=== PATIENT | female | born 1960 ===

== ENCOUNTER 2020-02-10 08:28 | Outpatient (REF) | payer MEDICAID, SELFPAY ==
--- NOTE | 2020-02-10 08:34 | MM_ITS ---
EXAMINATION: MM SCREENING DIGITAL BREAST TOMOSYNTHESIS, BILATERAL CLINICAL INFORMATION: Screening. Asymptomatic. History of benign left breast stereotactic biopsy on 05/18/2016. The lifetime risk of breast cancer based on the Tyrer-Cuzick Model is 8.1%. COMPARISON: Mammography: Mammograms of 02/06/2019 and multiple previous mammograms dated back to 01/21/2015 TECHNIQUE: Digital breast tomosynthesis is performed in both the craniocaudal and mediolateral oblique views along with computer-aided detection (CAD). Synthesized 2D images are generated from the tomosynthesis. FINDINGS: There are scattered areas of fibroglandular density (ACR BI-RADS breast composition Category b). A T-shaped postbiopsy marker clip in the upper outer quadrant of the left breast, 3.5 cm from nipple is unchanged in position. No suspicious masses, calcifications, architectural distortion or other abnormalities are seen in either breast. MM/MM tomosynthesis screening BI IMPRESSION: No mammographic evidence of malignancy. ASSESSMENT: BI-RADS 2: Benign RECOMMENDATION: Routine annual mammography screening. This patient's information was entered into a reminder system with a target due date for their next mammogram.
== END 2020-02-10 08:29 | disposition home or self-care (01) ==
LOC: HO.MAMMO 08:28
PROVIDERS: Visit Provider Family Medicine
DX: Z12.31 Encounter for screening mammogram for malignant neoplasm of breast (principal)
CPT/HCPCS: 77063; 77067

== ENCOUNTER 2022-09-09 11:10 | Outpatient (REF) | payer MEDICAID, SELFPAY ==
--- NOTE | ~2022-09-09 | MM_ITS ---
EXAMINATION: MM SCREENING DIGITAL BREAST TOMOSYNTHESIS, BILATERAL CLINICAL INFORMATION: Screening. Asymptomatic. The lifetime risk of breast cancer based on the Tyrer-Cuzick Model is 7%. COMPARISON: Multiple prior exams including most recent 02/18/2020. TECHNIQUE: Digital breast tomosynthesis is performed in both the craniocaudal and mediolateral oblique views along with computer-aided detection (CAD). Synthesized 2D images are generated from the tomosynthesis. FINDINGS: There are scattered areas of fibroglandular density (ACR BI-RADS breast composition Category b). There are no significant masses, abnormal calcifications, or other abnormalities. Biopsy clip marker again seen anterior mid upper outer left breast. No developing density or architectural abnormality. The axilla and skin contours are unremarkable. MM/MM tomosynthesis screening BI IMPRESSION: No mammographic evidence of malignancy. ASSESSMENT: BI-RADS 1: Negative RECOMMENDATION: Routine annual mammography screening. This patient's information was entered into a reminder system with a target due date for their next mammogram.
== END 2022-09-09 11:11 | disposition home or self-care (01) ==
LOC: HO.MAMMO 11:10
PROVIDERS: PCP Internal Medicine; Visit Provider Internal Medicine
DX: Z12.31 Encounter for screening mammogram for malignant neoplasm of breast (principal)
CPT/HCPCS: 77063; 77067

== ENCOUNTER 2022-11-17 19:30 | Outpatient (REF) | payer MEDICAID, SELFPAY ==
[2022-11-22 05:09] LABS: HPV mRNA E6/E7 rflx Not Detected (Not Detected)
== END 2022-11-17 19:31 | disposition home or self-care (01) ==
LOC: HO.HHCLNP 19:30
PROVIDERS: Visit Provider Internal Medicine
DX: Z12.4 Encounter for screening for malignant neoplasm of cervix (principal); Z11.51 Encounter for screening for human papillomavirus (HPV)
CPT/HCPCS: 87624; 88142

== ENCOUNTER 2023-08-02 10:26 | Outpatient (REF) | payer MEDICAID, SELFPAY ==
[2023-08-02 11:32] LABS: MANUAL DIFF FLAG NO
[2023-08-02 11:42] LABS: Basophils Absolute Auto 0.1 X10*3/uL (0.0-0.2); Basophils Percent Auto 0.8 % (0-2); Eosinophils Absolute Auto 0.1 X10*3/uL (0.0-0.4); Eosinophils Percent Auto 1.2 % (0-4); Hematocrit 39.1 % (37.0-47.0); Hemoglobin 13.6 g/dl (12.0-16.0); Imm Gran Abs Auto 0.04 X10*3/uL (0.00-0.03); Imm Gran Pct Auto 0.5 % (0.0-0.4); Lymphocytes Absolute Auto 2.4 X10*3/uL (1.2-4.9); Lymphocytes Percent Auto 27.3 % (20-40); Mean Corpuscular HGB Conc 34.8 g/dl (31.0-35.0); Mean Corpuscular Hemoglobin 31.4 pg (27.0-33.0); Mean Corpuscular Volume 90.3 fL (80.0-98.0); Mean Platelet Volume 9.4 fL (9.4-12.3); Monocytes Absolute Auto 0.6 X10*3/uL (0.1-1.2); Monocytes Percent Auto 6.5 % (2-11); Neutrophils Absolute Auto 5.5 x10*3/uL (2.0-8.3); Neutrophils Percent Auto 63.7 % (45-73); Platelet Count 330 X10*3/uL (160-400); Red Blood Count 4.33 X10*6/uL (4.20-5.50); Red Cell Distribution Width 12.7 % (11.0-16.0); White Blood Count 8.6 X10*3/uL (4.8-10.8)
[2023-08-02 12:07] LABS: Estimated Average Glucose 97 mg/dL
[2023-08-02 12:16] LABS: Alanine Aminotransferase 16 U/L (0-31); Albumin Level 4.2 g/dL (3.5-5.0); Alkaline Phosphatase 84 U/L (39-117); Anion Gap 10 (12-20); Aspartate Amino Transferase 15 U/L (5-31); Bilirubin Direct 0.5 mg/dL (0.0-0.5); Bilirubin Total 1.9 mg/dL (0.0-1.0); Blood Urea Nitrogen 9 mg/dL (9-16); Calcium 9.3 mg/dL (8.4-10.2); Carbon Dioxide 28 mmol/L (22-29); Chloride 106 mmol/L (96-108); Cholesterol 213 mg/dL (<200); Estimated Glomerular Filt Rate > 60; Glucose Random 97 mg/dL (60-115); HDL Cholesterol 53 mg/dL (>40); LDL Cholesterol Calculated 123 mg/dL (<100); Potassium 3.6 mmol/L (3.3-5.1); Sodium 140 mmol/L (135-145); Total Protein 7.4 g/dL (6.5-8.0); Triglycerides 186 mg/dL (<150)
[2023-08-02 12:34] LABS: TSH reflex Free T4 1.35 uIU/mL (0.32-4.0); Vitamin D 25-OH Total 17.2 ng/mL (>30)
[2023-08-02 14:39] LABS: Folate 12.6 ng/mL (> or = 4.0); Vitamin B12 363 pg/mL (200-900)
[2023-08-03 05:31] LABS: HIV AB/AG Nonreactive (Nonreactive); HIV Num 1 0.04 S/CO (0.00-0.99); ~Hepatitis C Antibody Nonreactive (Nonreactive)
== END 2023-08-02 10:27 | disposition home or self-care (01) ==
LOC: HO.HHCL 10:26
PROVIDERS: Visit Provider Internal Medicine
DX: R42 Dizziness and giddiness (principal); R00.2 Palpitations; K58.2 Mixed irritable bowel syndrome
CPT/HCPCS: 36415; 80048; 80061; 80076; 82306; 82607; 82746; 83036; 84443; 85025; 86803; 87338; 87389

== ENCOUNTER 2023-09-15 10:46 | Outpatient (REF) | payer MEDICARE, SELFPAY ==
--- NOTE | ~2023-09-15 | MM_ITS ---
EXAMINATION: MM SCREENING DIGITAL BREAST TOMOSYNTHESIS, BILATERAL CLINICAL INFORMATION: Screening. Asymptomatic. COMPARISON: Mammography: This study is compared with prior exams dating back to 2019. TECHNIQUE: Digital breast tomosynthesis is performed in both the craniocaudal and mediolateral oblique views along with computer-aided detection (CAD). Synthesized 2D images are generated from the tomosynthesis. FINDINGS: There are scattered areas of fibroglandular density (ACR BI-RADS breast composition Category b). There are no significant masses, abnormal calcifications, or other abnormalities. There is a biopsy tissue marker in the upper outer quadrant of the left breast. MM/MM tomosynthesis screening BI IMPRESSION: No mammographic evidence of malignancy. ASSESSMENT: BI-RADS BI-RADS 2 - Benign Findings RECOMMENDATION: Routine annual mammography screening. 1 year F/U This examination should not preclude the clinical evaluation of a suspicious palpable abnormality. This patient's information was entered into a reminder system with a target due date for their next mammogram.
== END 2023-09-15 10:47 | disposition home or self-care (01) ==
LOC: HO.MAMMO 10:46
PROVIDERS: PCP Internal Medicine; Visit Provider Internal Medicine
DX: Z12.31 Encounter for screening mammogram for malignant neoplasm of breast (principal)
CPT/HCPCS: 77063; 77067

== ENCOUNTER → 2023-09-15 11:00 | Outpatient (BNV) | payer MEDICARE, SELFPAY | PROVIDERS: PCP Internal Medicine; Visit Provider Radiology Diagnostic Radiology | DX: Z12.31 Encounter for screening mammogram for malignant neoplasm of breast (principal) | CPT/HCPCS: 77063; 77067 ==

== ENCOUNTER 2023-11-14 12:34 | Outpatient (REF) | payer MEDICARE, MEDICAID, SELFPAY ==
[2023-11-14 14:21] LABS: Troponin-I High Sensitivity < 2.7 ng/L (<3.5-17.0)
== END 2023-11-14 12:35 | disposition home or self-care (01) ==
LOC: HO.LAB 12:34
PROVIDERS: PCP Internal Medicine; Visit Provider Internal Medicine Cardiovascular Disease
DX: R07.89 Other chest pain (principal); I44.4 Left anterior fascicular block; R00.2 Palpitations
CPT/HCPCS: 36415; 84484; 93005; 99202

== ENCOUNTER 2023-11-14 12:34 | Outpatient (AMB) | payer MEDICARE, SELFPAY ==
--- NOTE | 2023-11-14 12:41 | A.OFFVIS_ITS ---
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,chest pain Intake Note: New patient chest pain and palpitations c/o chest pain with activity Burner Tender Required: Yes Burner Tender Services: Burner Tender Present Burner Tender Name: Alondra arriaga Electrical And Instrument Engineer: Electrical And Instrument Engineer Present Accompanied by: Daughter Allergies No Known Allergies [No Known Allergies*] Allergy (Unverified 12/26/19 16:16) Medication List - Last Reconciled 11/14/23 by Eran Ni MD acetaminophen mg PO cholecalciferol (vitamin D3) (Vitamin D3) 50 mcg PO DAILY cyclobenzaprine 5 mg PO TID PRN duloxetine 30 mg PO BID famotidine 20 mg PO BID fluticasone propionate 50 mcg/actuation 1 spray intranasal QAM gabapentin 300 mg PO TID loratadine 10 mg PO QAM meclizine 25 mg PO TID PRN ondansetron 8 mg PO Q8H PRN HPI Comments Details: Loly was referred here for precordial chest pain, she is accompanied by her daughter. History was obtained with help of a certified rollway man over the telephone. Patient is 63-year-old female with no major cardiovascular risk factors with no history of hypertension, diabetes, hyperlipidemia, family history or smoking. Patient says over the many months she has been getting left shoulder discomfort radiating to precordial area. Symptoms can happen any time and including at rest. She says she has having chest pain while he was interviewing with her and has been present since she woke up this morning for many hours. Pain is continuously present. Pain is worse with movement of her left shoulder above the shoulder level. Pain is reproducible with movement as well as on pressure over the precordial area. She denies any exertional chest pain or shortness of breath says. She has limited exercise due to knee pain and gets tired after walking for many miles. Denies any heart failure symptoms. Denies any palpitations. No lightheadedness, syncope. [facility] Surgical History Hx of tubal ligation Family History Father No problems noted. Mother No problems noted. Social History Patient Tobacco Use Status: Never used Tobacco Review of Systems Const Denies chills, Denies daytime sleepiness, Denies fatigue, Denies fever(s), Denies frequent falls, Denies poor appetite, Denies snoring, Denies stops breathing during sleep, Denies weakness, Denies weight gain and Denies weight loss Eyes Denies loss of vision ENT Reports dizziness and Denies hearing loss Card Reports chest pain, Denies claudication, Denies leg edema, Denies lightheadedness, Reports palpitations, Denies dyspnea, Denies dyspnea on exertion and Denies orthopnea Resp Denies cough, Denies excessive phlegm production, Denies dyspnea, Denies dyspnea on exertion, Denies snoring and Denies wheezing GI Denies abdominal pain, Denies hematochezia, Denies change in bowel habits, Denies nausea and Denies vomiting Denies urinary frequency and Denies dysuria Musc Denies arthralgias, Denies muscle weakness, Denies numbness and Denies other (frequent falls) Skin/Breast Denies nail changes and Denies rash Neuro Denies Abnormal speech present, Reports dizziness, Denies frequent falls, Denies loss of vision, Denies memory loss, Denies numbness and Denies weakness Psych Denies depression and Denies memory loss Endo Denies fatigue and Reports palpitations Sidney/Lymph Reports easy bruising and Reports other (anemia) Aller/Immun Denies wheezing Physical Exam Vital Signs: Last Vital Signs Pulse 94 11/14/23 12:42 BP 138/80 11/14/23 12:42 BMI result Body Mass Index 30.2 Const General: cooperative, comfortable, no acute distress, alert, awake and Physically active Nutritional Appearance: obese Orientation/consciousness: patient oriented x3 Limitations: no limitations HEENT Head: Yes normocephalic and Yes atraumatic Neck Neck: Yes trachea midline, Yes supple and Yes no JVD Carotids: no bruits Chest Chest palpation & inspection: other (Reproduce will pain over the upper left chest area) Resp Effort & Inspection: normal respiratory effort Auscultation: clear to auscultation bilaterally Cardio Jugular venous distension: no JVD Palpation: normal PMI Rate: regular rate Rhythm: regular rhythm Heart sounds: S1 normal heart sound present, S2 normal heart sound present, no click, no gallops, no murmurs and Rub heart sound present GI Auscultation: normal bowel sounds Skin General skin exam: no rashes or lesions noted Neuro General: patient oriented x3 and no focal motor deficits Speech: No Abnormal speech present Extrem General: Yes no clubbing, cyanosis or edema Office Procedures EKG Details: EKG shows normal sinus rhythm with left anterior fascicular block with pulmonary disease pattern [id number], Complete Assessment & Plan Assessment & Plan (1) Non-cardiac chest pain: Code(s): R07.89 - Other chest pain Plan: Patient's chest pain is reproducible with movement as well as with pressure and has been present since morning 4 hours. EKG does not show any acute ischemic changes. Likelihood of myocardial ischemic pain is extremely less likely. Will check troponin today. Discussed with the patient that this appears to be musculoskeletal pain related to either muscular inflammation and/or shoulder issues. Will follow with you. I do not think she requires stress testing as she has no risk factors and minimal likelihood of myocardial ischemia by EKG as well as (2) Left anterior fascicular block: Code(s): I44.4 - Left anterior fascicular block Category: Medical Plan: Left anterior fascicular block noted on the EKG. Will obtain echocardiogram to rule out any structural heart disease. No further workup is indicated with the structure of the heart is within normal limits. Would continue with annual EKGs. Unlikely to cause any symptoms. Will follow up in the clinic if need be. Thank you for allowing me to partake in her care Orders: Orders CA echo transthoracic complete Today I44.4 - Left anterior fascicular block Troponin-I High Sensitivity Today R07.89 - Other chest pain Coding Level of Care Code New Pt Level 4 (59724) Diagnoses Non-cardiac chest pain R07.89 Left anterior fascicular block I44.4 CPT Codes EKG - CPT: 66646-[id number], Complete ([id number])
[2023-11-14 12:42] VITALS: BP 138/80; PULSE 94; BMI 30.2
== END 2023-11-14 14:59 | disposition home or self-care (01) ==
PROVIDERS: PCP Internal Medicine; Visit Provider Internal Medicine Cardiovascular Disease
DX: R07.89 Other chest pain (principal); I44.4 Left anterior fascicular block
CPT/HCPCS: 93010; 99204

== ENCOUNTER 2023-12-06 13:22 | Outpatient (AMB) | payer MEDICARE, SELFPAY ==
[2023-12-06 13:24] VITALS: BP 131/59; PULSE 79; BMI 31.1
--- NOTE | 2023-12-06 13:24 | A.OFFVIS_ITS ---
Vital Signs 12/06/23 13:24 Height 5 ft 2 in Weight 170 lb 3.15 oz BMI 31.1 BP 131/59 L Blood Pressure Location Rt brachial Position Sitting Pulse 79 Intake Visit Reasons: Irritable bowel syndrome Intake Note: Loly presents to in office visit as a new patient for IBS. CC: Patient c/o nausea, abdominal pain, heartburn, acid reflux, constipation, diarrhea, and dysphagia. Patient states that she had a colonoscopy and EGD done years ago here at [facility]. [employer] Representative [employer] Required: Yes Accompanied by: Daughter Allergies No Known Allergies [No Known Allergies*] Allergy (Verified 12/06/23 13:30) HPI HPI Irritable bowel syndrome: Details: 63-year-old female here for an evaluation of IBS-M. She is referred by [facility]. PMX Obesity-BMI 31 Allergic rhinitis Palpitations Left fascicular block Arthralgias myalgias Dizziness Fatigue Depression GERD IBS-M H pylori infection * SURGICAL HISTORY Tubal Ligation Colonoscopy 2015 Paiz-no polyps Esophagogastroduodenoscopy-H pylori discovered * ALLERGIES: NKDA * [employer] LABS: Laboratory Tests 08/02/23 10:28 WBC 8.6 Hgb 13.6 Hct 39.1 Plt Count 330 Estimated GFR > 60 Total Bilirubin 1.9 H Direct Bilirubin 0.5 AST 15 ALT 16 Alkaline Phosphatase 84 TSH 1.35 Hepatitis C Ab (EIA) Nonreactive HIV 1&2 Ab/P24 Ag 4thGn Nonreactive TODAY'S VISIT Macedonian # female family member translates per pt request. This seems to have started in 10/2023 with pain and reflux and dysphagia of solid foods. The food gets stuck at the level of the voicebox and at times this also happens at times with liquids and she has mild aspiration. She has epigastric discomfort that she can not further qualify. She can not ID any preceding medication changes, diet changes or illness, she has gained some weight. Her stooling is described as diarrheal now, and this started along with the epigastric pain. Prior to this her stools were normal and formed. She also describes periumbilical pain with every BM but at times she will go several days or even up to a week w/o any BM. She is not having any formed stools now. She has a lot of nausea but no vomiting - mostly when the pain is bad. Her 2 dtrs have had choles, one older sister has a shrimp allergy. For now I am going to get stool testing to excluding infection, pancreatic a last taste, an ultrasound to test for gallbladder disease and will start her on a trial of dicyclomine. We could consider if EGD/colonoscopy is needed but I am not so sure this would be the most specific diagnostic process for what she is experiencing. Her last colonoscopy was in 2015 and with a negative family history she would be due for re-screening in 2025. However, an upper endoscopy due to her reports of dysphagia could be reasonable but since it seems to be high up in the late lingual phase we may need to consider a modified barium swallow as well. ROV 6 weeks. [facility] Medical History (Updated 12/06/23 @ 14:05 by TARYN Winchester) Irritable bowel syndrome with both constipation and diarrhea Surgical History H/O esophagogastroduodenoscopy H/O colonoscopy Hx of tubal ligation Family History Father No problems noted. Mother No problems noted. Social History Alcohol intake: never Patient Tobacco Use Status: Never used Tobacco Review of Systems Const Denies fatigue, Denies fever(s), Denies night sweats, Denies poor appetite and Denies weight loss ENT Reports Normal hearing present, Denies dental pain, Reports dysphagia, Denies hearing loss, Denies mouth pain, Denies odynophagia, Denies throat swelling, Denies tongue swelling and Reports other (Dentition adequate) Card Reports no additional complaints Resp Reports no additional complaints GI Details: Reports abdominal pain, Denies melena, Reports bloating, Denies hematochezia, Denies constipation, Reports GI cramping, Reports dysphagia, Denies excessive flatus, Denies early satiety, Reports heartburn, Denies diarrhea, Reports loose stools, Denies nausea, Denies odynophagia, Denies vomiting and Denies hematemesis Skin/Breast Denies pruritus, Denies lesions, Denies rash and Denies jaundice Neuro Reports Normal hearing present and Denies Abnormal speech present Endo Denies fatigue Aller/Immun Denies throat swelling and Denies tongue swelling Physical Exam Vital Signs: Last Vital Signs Pulse 79 12/06/23 13:24 BP 131/59 L 12/06/23 13:24 BMI result Body Mass Index 31.1 Const General: cooperative, no acute distress, well developed and well groomed Nutritional Appearance: well nourished and obese Orientation/consciousness: oriented to person, oriented to place and oriented to time Limitations: language barrier and ambulation with cane HEENT Head: Yes normocephalic and Yes atraumatic Eyes General: appearance normal, both eyes and all related structures Pupils: Equal, round and reactive pupils present Neck Neck: Yes normal visual inspection and Yes no lymphadenopathy Thyroid: Thyroid normal Resp Effort & Inspection: normal respiratory effort and able to speak in complete sentences Auscultation: clear to auscultation bilaterally Cardio Rate: regular rate Rhythm: regular rhythm Heart sounds: Normal, physiologic split S2 sound present Peripheral pulses: radial pulses present and posterior tibial pulses present GI Inspection: No distended, Yes Abdominal panniculus present and Yes obesity Palpation (GI): Soft to palpation, nontender, no guarding, not rigid and No hepatosplenomegaly present Percussion: Yes normal to percussion Auscultation: normal bowel sounds Rectal Exam - Female: deferred Skin General skin exam: no rashes or lesions noted, turgor normal, skin not dry, no jaundice, No spider nevi and no striae Rashes: no rashes Nails: normal Neuro General: oriented to person, oriented to place and oriented to time Cranial nerves: Yes Equal, round and reactive pupils present and Yes Normal hearing present Speech: No Abnormal speech present Extrem General: Yes normal to inspection, No clubbing, No cyanosis and No edema Psych Appearance: grossly normal and well kempt Mental Status: mental status grossly normal Speech and movement: Normal speech and movement present Affect: normal affect Attitude: cooperative Thought process: Normal thought process present and not confabulating Thought content: Normal thought content present Insight: Limited insight present (Psych) Judgement: Limited judgement present (Psych) Assessment & Plan Assessment & Plan (1) GERD (gastroesophageal reflux disease): Code(s): K21.9 - Gastro-esophageal reflux disease without esophagitis Category: Medical (2) Diarrhea: Code(s): R19.7 - Diarrhea, unspecified Category: Medical (3) Upper abdominal pain: Code(s): R10.10 - Upper abdominal pain, unspecified Category: Medical Plan Macedonian # female family member translates per pt request. This seems to have started in 10/2023 with pain and reflux and dysphagia of solid foods. The food gets stuck at the level of the voicebox and at times this also happens at times with liquids and she has mild aspiration. She has epigastric discomfort that she can not further qualify. She can not ID any preceding medication changes, diet changes or illness, she has gained some weight. Her stooling is described as diarrheal now, and this started along with the epigastric pain. Prior to this her stools were normal and formed. She also describes periumbilical pain with every BM but at times she will go several days or even up to a week w/o any BM. She is not having any formed stools now. She has a lot of nausea but no vomiting - mostly when the pain is bad. Her 2 dtrs have had choles, one older sister has a shrimp allergy. For now I am going to get stool testing to excluding infection, pancreatic a last taste, an ultrasound to test for gallbladder disease and will start her on a trial of dicyclomine. We could consider if EGD/colonoscopy is needed but I am not so sure this would be the most specific diagnostic process for what she is experiencing. Her last colonoscopy was in 2015 and with a negative family history she would be due for re-screening in 2025. However, an upper endoscopy due to her reports of dysphagia could be reasonable but since it seems to be high up in the late lingual phase we may need to consider a modified barium swallow as well. ROV 6 weeks. Orders: Orders GI Panel Today K21.9 - Gastro-esophageal reflux disease without esophagitis, R10.10 - Upper abdominal pain, unspecified, R19.7 - Diarrhea, unspecified Transglutaminase IgA Today K21.9 - Gastro-esophageal reflux disease without esophagitis, R10.10 - Upper abdominal pain, unspecified, R19.7 - Diarrhea, unspecified US abdomen complete Today K21.9 - Gastro-esophageal reflux disease without esophagitis, R10.10 - Upper abdominal pain, unspecified, R19.7 - Diarrhea, unspecified CDiff Gene PCR Today K21.9 - Gastro-esophageal reflux disease without esophagitis, R10.10 - Upper abdominal pain, unspecified, R19.7 - Diarrhea, unspecified Rast Allergen Today K21.9 - Gastro-esophageal reflux disease without esophagitis, R10.10 - Upper abdominal pain, unspecified, R19.7 - Diarrhea, unspecified Transglutaminase Ab IgG Today K21.9 - Gastro-esophageal reflux disease without esophagitis, R10.10 - Upper abdominal pain, unspecified, R19.7 - Diarrhea, unspecified Pancreatic Elastase-1 Today K21.9 - Gastro-esophageal reflux disease without esophagitis, R10.10 - Upper abdominal pain, unspecified, R19.7 - Diarrhea, unspecified Medications: New dicyclomine 20 mg PO QID 120 tabs 3RF 30 days R10.10 - Upper abdominal pain, unspecified, R19.7 - Diarrhea, unspecified Coding Level of Care Code New Pt Level 3 (21900) Diagnoses GERD (gastroesophageal reflux disease) K21.9 Diarrhea R19.7 Upper abdominal pain R10.10
== END 2023-12-06 14:12 | disposition home or self-care (01) ==
PROVIDERS: PCP Internal Medicine; Visit Provider Nurse Practitioner
DX: K21.9 Gastro-esophageal reflux disease without esophagitis (principal); R19.7 Diarrhea, unspecified; R10.10 Upper abdominal pain, unspecified
CPT/HCPCS: 99203

== ENCOUNTER → 2023-12-06 13:22 | Outpatient (BNVA) | payer MEDICARE, SELFPAY | PROVIDERS: PCP Internal Medicine; Visit Provider Nurse Practitioner | DX: Z13.89 Encounter for screening for other disorder (principal) | CPT/HCPCS: 99202 ==

== ENCOUNTER 2023-12-06 14:22 | Outpatient (REF) | payer MEDICARE, SELFPAY ==
[2023-12-08 21:07] LABS: Transglutaminase Ab IgG <1.0 U/mL; Transglutaminase IgA <1.0 U/mL
== END 2023-12-06 14:23 | disposition home or self-care (01) ==
LOC: HO.LAB 14:22
PROVIDERS: PCP Internal Medicine; Visit Provider Nurse Practitioner
DX: R19.7 Diarrhea, unspecified (principal); R10.10 Upper abdominal pain, unspecified; K21.9 Gastro-esophageal reflux disease without esophagitis
CPT/HCPCS: 36415; 86003; 86364; 99202

== ENCOUNTER 2023-12-07 11:38 | Outpatient (REF) | payer MEDICARE, SELFPAY | END 2023-12-07 11:39 | disposition home or self-care (01) | LOC: HO.LNP 11:38 | PROVIDERS: Visit Provider Nurse Practitioner | DX: Z13.89 Encounter for screening for other disorder (principal) | CPT/HCPCS: 82656; 87493 ==

== ENCOUNTER 2023-12-12 11:42 | Outpatient (REF) | payer SELFPAY ==
[2023-12-13 10:06] LABS: Adenovirus F 40/41 Not Detected (Not Detect.); Astrovirus Not Detected (Not Detect.); Campylobacter Not Detected (Not Detect.); Cryptosporidium Not Detected (Not Detect.); Cyclospora cayetanensis Not Detected (Not Detect.); E. coli EAEC Detected (Not Detect.); E. coli EPEC Not Detected (Not Detect.); E. coli ETEC Not Detected (Not Detect.); E. coli STEC Not Detected (Not Detect.); Entamoeba histolytica Not Detected (Not Detect.); Giardia lamblia Not Detected (Not Detect.); Norovirus GI/GII Not Detected (Not Detect.); Plesiomonas shigelloides Not Detected (Not Detect.); Rotavirus A Not Detected (Not Detect.); Salmonella Not Detected (Not Detect.); Sapovirus Not Detected (Not Detect.); Shigella sp./EIEC Not Detected (Not Detect.); Vibrio Not Detected (Not Detect.); Vibrio Cholerae Not Detected (Not Detect.); Yersinia enterocolitica Not Detected (Not Detect.)
== END 2023-12-12 11:43 | disposition home or self-care (01) ==
LOC: HO.LNP 11:42
PROVIDERS: Visit Provider Nurse Practitioner
DX: R19.7 Diarrhea, unspecified (principal); R10.10 Upper abdominal pain, unspecified; K21.9 Gastro-esophageal reflux disease without esophagitis
CPT/HCPCS: 87507

== ENCOUNTER 2023-12-14 08:12 | Outpatient (REF) | payer SELFPAY ==
--- NOTE | ~2023-12-14 | US_ITS ---
EXAMINATION: US ABDOMEN COMPLETE CLINICAL INFORMATION: Diarrhea, unspecified. Upper abdominal pain. COMPARISON: None available. TECHNIQUE: Real-time imaging of the abdominal viscera. Technically difficult study secondary to bowel gas and body habitus. FINDINGS: PANCREAS: The pancreas appears unremarkable, without masses or ductal dilatation, with the exception of the tail which is obscured by bowel gas. ABDOMINAL AORTA: The proximal and mid abdominal aorta show no evidence of an aneurysm. The distal aorta is not visualized. INFERIOR VENA CAVA: Visualized portions are normal. LIVER: Liver is enlarged at 18 cm. The liver contour is normal. There is diffuse increased liver parenchymal echogenicity, consistent with hepatic steatosis. No focal hepatic lesion. There is no intrahepatic biliary duct dilatation seen. GALLBLADDER: Normal. The gallbladder is physiologically distended without evidence of stones, sludge, polyps, wall thickening or pericholecystic fluid. COMMON BILE DUCT: Normal in caliber measuring 0.4 cm in diameter. RIGHT KIDNEY: Normal. No hydronephrosis. No renal calculi or focal parenchymal lesions. The kidney measures 10.0 cm in maximum dimension. LEFT KIDNEY: Normal. No hydronephrosis. No renal calculi or focal parenchymal lesions. The kidney measures 10.8 cm in maximum dimension. SPLEEN: The spleen measures 6.8 cm in maximum dimension. FREE FLUID: None. US/US abdomen complete IMPRESSION: Enlarged fatty liver. Electronically signed by: Jenaro Henry MD 12/20/2023 03:20 PM EDT
== END 2023-12-14 08:13 | disposition home or self-care (01) ==
LOC: HO.US 08:12
PROVIDERS: PCP Internal Medicine; Visit Provider Nurse Practitioner
DX: R19.7 Diarrhea, unspecified (principal); R10.10 Upper abdominal pain, unspecified; K21.9 Gastro-esophageal reflux disease without esophagitis
CPT/HCPCS: 76700

== ENCOUNTER → 2023-12-20 10:36 | Outpatient (REF) | payer MEDICARE, SELFPAY ==
--- NOTE | 2023-12-20 10:40 | CA_ITS ---
Transthoracic Echocardiogram Patient (Last, First, Middle): Loly Magaña V Gender: Female Date of : 1960 Age: 63 Procedure Date: 12/20/2023 Procedure Type: Transthoracic Echocardiogram Location: OP Height: 152.4 cm Weight: 72.58 kg BSA: 1.70 m2 Heart Rate: bpm BP: 120 / 68 mmHg [facility] Director: TO Referring MD: Eran Ni MD C[employer] Chief Inspector: Eran Ni MD Symptoms: I44.4 - Left anterior fascicular block Study Quality: Fair/Contrast ECG Rhythm: Sinus Conclusions: - 1. Normal LV ejection fraction 60 65% with impaired relaxation filling pattern 2. Cardiac valvular Doppler was within normal limits 3. No gross pericardial effusion Findings Procedure Information Contrast agent, definity, is being given per protocol without apparent complications. Left Ventricle Normal left ventricular size, thickness, and systolic function. The visually estimated ejection fraction is between 60-65%. Spectral Doppler is indicative of an impaired relaxation filling pattern. E/E prime ratio is between 8 and 15 consistent with indeterminate filling pressures. Right Ventricle Normal right ventricular cavity size and systolic function. Atria Both atria are normal in size. Interatrial shunt cannot be excluded. Aortic Valve The aortic valve structure and function is likely normal. There is no aortic valve stenosis. There is no aortic valve regurgitation. Mitral Valve Normal mitral valve structure and function. There is trace mitral valve regurgitation. There is no mitral valve stenosis. Pulmonic Valve The pulmonic valve was not well visualized. Tricuspid Valve Likely normal tricuspid valve structure and function. There is trace tricuspid valve regurgitation. The right ventricular systolic pressure is normal. The right ventricular systolic pressure is 18 mmHg. Normal right atrial pressure. There is no evidence of pulmonary hypertension. Great Vessels All visible segments of the aorta are normal in size. The pulmonary artery was not well visualized. There is no dilatation of the ascending aorta measuring 2.70 cm. Venous The inferior vena cava is normal in size and collapses greater than 50% with inspiration. Pericardium/Pleural There is no evidence of pericardial effusion. Prior Study Comparison No prior study available for comparison. Measurements 2D Linear Measurements IVSd: 0.85 0.6-0.9/0.6-1.0 cm LVIDd: 3.86 3.9-5.3/4.2-5.9 cm LVIDd Index: 2.27 2.4-3.2/2.2-3.1 cm/m2 LVIDs: 2.56 2.0-3.6 cm LVPWd: 0.80 0.7-1.1 cm LA Diam: 2.70 2.7-3.8/3.0-4.0 cm LAIDs Index: 1.59 1.5-2.3 cm/m2 LV Mass: 113.50 67-162/88-224 g LV Mass Index: 66.76 43-95/49-115 g/m2 LVOT Diam: 2.00 3.0+(-)1.3 cm 2D Systolic Function EF 4C: 63.30 >55% EF 2C: 65.20 >55% EF BiP: 65.20 >55% Mitral Valve MV Pk E: 0.75 MV PK A: 0.93 MV Decel Time: 208.00 E/A: 0.80 E'Lateral: 6.53 E'Medial: 5.11 E/E' Med: 14.80 E/E' Lat: 11.50 PHT: 61.00 MVA PHT: 3.61 Decel [place]: 3.63 Aortic Valve AoV Pk Arie: 1.22 AoV Mn Arie: 0.74 AoV VTI: 0.25 AoV Pk Grad: 6.00 Aov Mn Grad: 3.00 EMETERIO Cont.VTI: 2.28 LVOT LVOT Pk Arie: 0.80 LVOT Mn Arie: 0.53 LVOT VTI: 0.18 LVOT Pk Grad: 3.00 LVOT Mn Grad: 1.00 LVOT Diam: 2.00 LVOT Area: 3.14 Diastolic Function MV Pk E: 0.75 MV Pk A: 0.93 E/A: 0.80 E'Medial: 5.11 E/E' Med: 14.80 E' Laterial: 6.53 E/E' Lat: 11.50 Right Ventricle TAPSE (mm): 26.50 TVS' Arie: 11.40 Tricuspid Valve TR Pk Arie: 1.91 TR Pk Grad: 15.00 RA Press: 3.00 RVSP: 18.00 Great Vessels Aorta Sinus of Valsalva: 3.12 2.0-3.5 cm Ao Asc: 2.70 2.1-3.4 cm Ao Arch: 2.40 Updated in Other Vendor System with Status of Final Eran Ni MD electronically signed on 12/20/2023 1:48:18 PM with status of Final
== END ==
LOC: HO.CARD 10:36
PROVIDERS: PCP Internal Medicine; Visit Provider Internal Medicine Cardiovascular Disease
DX: I44.4 Left anterior fascicular block (principal)
CPT/HCPCS: 93306; Q9957

== ENCOUNTER → 2023-12-20 10:40 | Outpatient (BNV) | payer MEDICARE, SELFPAY | PROVIDERS: PCP Internal Medicine; Visit Provider Internal Medicine Cardiovascular Disease | DX: I51.89 Other ill-defined heart diseases (principal); I44.4 Left anterior fascicular block | CPT/HCPCS: 93306 ==

== ENCOUNTER 2024-03-19 14:18 | Outpatient (REF) | payer MEDICARE, OTHER, SELFPAY | END 2024-03-19 14:19 | disposition home or self-care (01) | LOC: HO.HOSX 14:18 | PROVIDERS: Visit Provider Physician Assistant | DX: Z13.89 Encounter for screening for other disorder (principal) ==

== ENCOUNTER 2025-02-21 09:52 | Outpatient (REF) | payer OTHER, SELFPAY ==
--- OUTSIDE RECORDS SUMMARY | 2025-02-20 09:00 | XMS_ITS | Encounter Summary ---
Author Organization [employer] Address [address] [facility] 7t [place] [address] Care Team Providers Care Room Designer Name Role Phone Loly Sheridan MD Primary Care Provide r Reason for Referral * Medications - Closed Specialty Diagnoses / Procedures Referred By Contac t Referred To Contact Diagnoses Nausea Loly Sheridan MD [address] [place] [id number] Phone: tel: fax: Referral ID Status Reason Start Date Expiration Date Visits Re quested Visits Authorized [id number] Closed 1 1 Encounter Details Date Type Department Care Team ([facility] st Contact Info) Description 02/20/2025 9:00 AM EST Office Visit [facility] MEDICINE [address] [place] [phone] Loly Sheridan MD [address] [place] [address] [phone] Irritable bowel syndrome with both constipation and diarrhea (Primary Dx); Memory deficits; Fibromyalgia; Mixed hyperlipidemia; Gastroesophageal reflux disease, unspecified whether esophagitis present; Nausea Social History Tobacco Use Types Packs/Day Years Used Date Smoking Tobacco: Never Passive Smoke Exposure: Never Smokeless Tobacco: Never Alcohol Use Standard Drinks/Week Comments Never 0 (1 standard drink = 0.6 oz pur e alcohol) Depression Answer Date Recorded Patient Health Questionnaire-9 Score 0 08/09/2024 Patient Health Questionnaire-9 Score 0 08/09/2024 Last PHQ-9: Questionnaire Data Not on file 0 08/09/2024 Housing Stability Answer Date Recorded What is your housing situation today? I have arlin patterson 10/24/[address] you li ve. Do you have problems with any of the following? None of the above 10/24/2023 Food Insecurity Answer Date Recorded Within the past 12 months, y ou worried that your food would run out before you got money to buy more: Never True 02/06/2023 Within the past 12 months,th e food you bought just didn't last and you didn't have enough money to get more: Never True Transportation Answer Date Recorded In the past 12 months, has l ack of transportation kept you from medical appts, meetings, work or from getting things needed for daily living? No 10/24/2023 Utilities Answer Date Recorded In the past 12 months, has t he electric, gas, oil or water company threatened to shut off services in your home? No 02/06/2023 Depression Answer Date Recorded Patient Health Questionnaire-2 Score 0 08/09/2024 Internet Access Answer Date Recorded Internet Access Q1 Yes 10/27/2024 Internet Access Q2 Not on file 10/27/2024 Comments Unknown Sex and Gender Information Value Date Recorded Sex Assigned at Female 02/07/2022 10:16 AM EDT Legal Sex Female 10:16 AM EDT Gender Identity Female 02/07/2022 10:16 AM EDT Sexual Orientation Straight 02/07/2022 10 :16 AM EDT documented as of this encounter Last Filed Vital Signs Vital Sign Reading Time Taken Comments Blood Pressure 122/78 02/20/2025 9:02 AM EST Pulse 72 02/20/2025 9:02 AM EST Temperature 34.4 C (94 F) 02/20/2025 9:02 AM EST Respiratory Rate 19 02/20/2025 9:02 AM EST Oxygen Saturation 97% 02/20/2025 9:02 AM EST Inhaled Oxygen Concentration - - Weight 77.2 kg (170 lb 3.2 oz) 02/20/2025 9:02 A M EST Height 150.9 cm (4' 11.4 ) 02/20/2025 9:02 AM ES T Body Mass Index 33.91 02/20/2025 9:02 AM EST documented in this encounter Progress Notes * Loly Guzman MD - 02/20/2025 9:00 AM EST SUBJECTIVE: Loly Anderson is a 64 y.o. year old female who presents for Chronic Disease Management . Loly Anderson, age 64 years Memory Loss and Cognitive Changes - Progressive memory loss noted for approximately 3 months - Forgetting to take medications - Forgot daily-used bank account PIN - Getting lost after leaving the house, unable to find way back - Leaving stove on at high temperature - Expressed feeling cloudy and not knowing where she was - Increased forgetfulness and confusion observed by family, especially after increased time spent at home caring for spouse - Frustration and irritability when forgetting things - Difficulty with grocery shopping, requires assistance and gets overwhelmed or forgets items Depression - History of depression - Hesitant to accept or continue treatment for depression - Denies current anxiety Gastrointestinal Symptoms - History of irritable bowel syndrome - Frequent complaints of nausea and stomach pain - Reports lack of appetite, but craves sweets - States feeling hungry but does not want to eat regular food Palpitations - Occasional complaints of palpitations Fibromyalgia - History of fibromyalgia - Reports episodes of generalized pain, sometimes unable to get up due to pain Ophthalmologic History - 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 HENT: Negative. Respiratory: Negative. Cardiovascular: Negative. Musculoskeletal: Positive for arthralgias and myalgias. Psychiatric/Behavioral: Positive for agitation, confusion and decreased concentration. The patient is nervous/anxious. OBJECTIVE: Vitals: 02/20/25 0902 BP: 122/78 BP Location: Left arm Patient Position: Sitting BP Cuff Size: Adult Pulse: 72 Resp: 19 Temp: 94 ??F (34.4 ??C) TempSrc: Temporal SpO2: 97% Weight: 170 lb 3.2 oz (77.2 kg) Height: 4' 11.4 (1.509 m) Physical Exam Constitutional: Appearance: Normal appearance. Cardiovascular: Rate and Rhythm: Normal rate and regular rhythm. Pulmonary: Effort: Pulmonary effort is normal. Breath sounds: Normal breath sounds. Abdominal: General: Abdomen is flat. Palpations: Abdomen is soft. Musculoskeletal: Right lower leg: No edema. Left lower leg: No edema. Neurological: General: No focal deficit present. Mental Status: She is alert. Mental status is at baseline. Follow Up: Follow up for please scheduel patient with nurse for minimental test in 1-2 weeks . Medications Ordered Prior to Encounter[3] Problem List Items Addressed This Visit Memory deficits Relevant Orders CBC auto differential Comprehensive Metabolic Panel Hemoglobin A1c TSH with Reflex to Free T4 RPR (Monitor) with Reflex to Titer Vitamin B12 (Cobalamin) and Folate Panel, Serum Fibromyalgia Mixed hyperlipidemia Relevant Medications pravastatin (Pravachol) 20 MG tablet Irritable bowel syndrome with both constipation and diarrhea - Primary Relevant Medications dicyclomine (Bentyl) 20 MG tablet ondansetron (Zofran) 4 MG tablet Gastroesophageal reflux disease Relevant Medications famotidine (Pepcid) 20 MG tablet dicyclomine (Bentyl) 20 MG tablet ondansetron (Zofran) 4 MG tablet Nausea Relevant Medications famotidine (Pepcid) 20 MG tablet dicyclomine (Bentyl) 20 MG tablet ondansetron (Zofran) 4 MG tablet Memory deficits: - Memory deficits possibly dementia, depression, or other reversible causes. Differential includes vascular dementia due to branch retinal vein occlusion and depression as a contributing factor. Other etiologies to be ruled out with laboratory evaluation. - Ordered laboratory tests including thyroid function, vitamin B12, syphilis serology, and glucose.Scheduled mini mental status examination with nurse within 1-2 weeks. Will review results and referto neurology based on findings. Will request services such as [facility] or adult foster care depending onseverity. Will follow up with patient and family regarding results and next steps. Televisit scheduled for March 2025 to review labs. Fibromyalgia: - Fibromyalgia confirmed as cause of chronic pain. Mixed hyperlipidemia: - Mixed hyperlipidemia with previously elevated cholesterol and triglycerides. - Prescribed pravastatin 20 mg. Advised to take medication as directed. Irritable bowel syndrome with both constipation and diarrhea: - Irritable bowel syndrome with alternating constipation and diarrhea. - Prescribed dicyclomine as needed for abdominal pain and cramping. Advised to use as needed. Gastroesophageal reflux disease, unspecified whether esophagitis present: - Gastroesophageal reflux disease. - Prescribed Pepcid for acid reflux symptoms. Nausea: - Persistent nausea. - Prescribed ondansetron (Zofran) as needed for nausea. This note was drafted using Ambient (AI) technology. The patient/patient's guardian has been informed and has consented to the use of this technology: Yes [1] Patient Active Problem List Diagnosis Viral URI Gastroesophageal reflux disease Mood disorder (CMS/HCC) Recurrent major depressive episodes, mild (CMS/HCC) Other fatigue Encounter for preventive health examination Colon cancer screening Breast cancer screening by mammogram Encounter for Papanicolaou smear for cervical cancer screening Generalized body aches Epigastric pain Allergies Fibromyalgia Palpitations Other chest pain Dizziness Irritable bowel syndrome with both constipation and diarrhea Acute pain of left shoulder Elevated blood pressure reading Nausea Chronic left shoulder pain Missing teeth, acquired Dental calculus Dental caries Periodontal disease Diminished vision Memory deficits Mixed hyperlipidemia [2] Family History Problem Relation Name Age of Onset Cancer Father Diabetes Sister Hypertension Sister [3] Current Outpatient Medications on File Prior to Visit Medication Sig Dispense Refill cholecalciferol (D3 Super Strength) 50 MCG (2000 UT) capsule Take 1 capsule (50 mcg) by mouth Once per day. 90 capsule 1 fluticasone (Flonase) 50 MCG/ACT nasal spray Administer 1 spray into each nostril Once per day. Shake gently. Before first use, prime pump. After use, clean tip and replace cap. 48 g 1 loratadine (Claritin) 10 MG tablet Take 1 tablet (10 mg) by mouth Once per day. 30 tablet 0 naproxen (Naprosyn) 500 MG tablet TAKE 1 TABLET BY MOUTH TWICE DAILY WITH BREAKFAST AND WITH [id number] tablet 1 ondansetron ODT (Zofran-ODT) 4 MG disintegrating tablet Take 2 tablets (8 mg) by mouth every 8 (eight) hours if needed for nausea or vomiting. 30 tablet 0 [DISCONTINUED] dicyclomine (Bentyl) 20 MG tablet Take 1 tablet (20 mg) by mouth before breakfast, before lunch, before evening meal, and at bedtime. 30 tablet 1 [DISCONTINUED] famotidine (Pepcid) 20 MG tablet Take 1 tablet (20 mg) by mouth 2 times daily. 180 tablet 1 [DISCONTINUED] ondansetron (Zofran) 4 MG tablet TAKE 2 TABLETS BY MOUTH EVERY 8 HOURS NEEDED FORNAUSEA AND VOMITING FOR UP TO 7 DAYS 20 tablet 0 No current facility-administered medications on file prior to visit. documented in this encounter Plan of Treatment Upcoming Encounters Date Type Department Care Team (Late st Contact Info) Description 02/27/2025 11:00 AM EST Clinical Support [facility] MEDICINE [address] [place] [address] 03/12/2025 11:30 AM EST Office Visit [facility] OPTOMETRY [address] [place] [address] Dimitry Ketty, OD [address] [place] [address] 04/08/2025 10:00 AM EST Telemedicine [facility] MEDICINE [address] [place] [address] Loly Sheridan MD [address] [place] [address] Scheduled Orders Name Type Priority Associated Diagnoses Orde r Schedule CBC auto differential Lab Routine Memory deficits Expected: 02/20/2025 (Approximate), Expires: 02/20/2026 Comprehensive Metabolic Panel Lab Routine Memory deficits Expected: 02/20/2025 (Approximate), Expires: 02/20/2026 Hemoglobin A1c Lab Routine Memory deficits Expected: 02/20/2025 (Approximate), Expires: 02/20/2026 TSH with Reflex to Free T4 Lab Routine Memory deficits Expected: 02/20/2025 (Approximate), Expires: 02/20/2026 RPR (Monitor) with Reflex to Titer Lab Routine Memory deficits Expected: 02/20/2025, Expires: 02/20/2026 Vitamin B12 (Cobalamin) and Folate Panel, Serum Lab Routine Memory deficits Expected: 02/20/2025, Expires: 02/20/2026 documented as of this encounter Visit Diagnoses Diagnosis Irritable bowel syndrome with both constipation and diarrhea- Primary Memory deficits Memory loss Fibromyalgia Unspecified myalgia and myositis Mixed hyperlipidemia Gastroesophageal reflux disease, unspecified whether esophagitis present Nausea Nausea alone documented in this encounter Additional Health Concerns Assessment Noted Time PHQ-9 Depression Total Score: 0 08/10/19 25 9:14 AM EDT documented as of this encounter Care Teams Room Designer Relationship Specialty Start Date End Date Loly Sheridan MD [address] [place] [address] PCP - General Family Medicine 12/20/17 documented as of this encounter
[2025-02-21 10:16] LABS: MANUAL DIFF FLAG NO
[2025-02-21 11:02] LABS: Hematocrit 39.9 % (37.0-47.0); Hemoglobin 13.2 g/dl (12.0-16.0); Imm Gran Abs Auto 0.03 X10*3/uL (0.00-0.03); Imm Gran Pct Auto 0.4 % (0.0-0.4); Lymphocytes Absolute Auto 2.3 X10*3/uL (1.2-4.9); Mean Corpuscular HGB Conc 33.1 g/dl (31.0-35.0); Mean Corpuscular Hemoglobin 30.3 pg (27.0-33.0); Mean Corpuscular Volume 91.5 fL (80.0-98.0); NRBC Abs Auto 0.000 X10*3/uL (0.0-0.012); NRBC Pct Auto 0.0 /100WBC (0.0-0.2); Platelet Count 331 X10*3/uL (160-400); Red Blood Count 4.36 X10*6/uL (4.20-5.50); White Blood Count 7.5 X10*3/uL (4.8-10.8)
--- OUTSIDE RECORDS SUMMARY | 2025-02-21 11:08 | XMS_ITS | Encounter Summary ---
Author Organization [employer] Address [address] [place] [address] Care Team Providers Care Energy Derivatives Trader Name Role Phone Loly Sheridan MD Primary Care Provide r Encounter Details Date Type Department Care Team (Late st Contact Info) Description 01/17/2023 Abstract [facility] MEDICINE [address] [place] [address] Anjana Marks Social History Tobacco Use Types Packs/Day Years Used Date Smoking Tobacco: Never Passive Smoke Exposure: Never Smokeless Tobacco: Never Alcohol Use Standard Drinks/Week Comments Never 0 (1 standard drink = 0.6 oz pur e alcohol) Depression Answer Date Recorded Patient Health Questionnaire-9 Score 0 08/01/2022 Housing Stability Answer Date Recorded What is your housing situation today? I have arlin patterson 01/17/[address] you li ve. Do you have problems with any of the following? None of the above 01/17/2023 Food Insecurity Answer Date Recorded Within the past 12 months, y ou worried that your food would run out before you got money to buy more: Never True 01/17/2023 Within the past 12 months,th e food you bought just didn't last and you didn't have enough money to get more: Never True 01/2023 Transportation Answer Date Recorded In the past 12 months, has l ack of transportation kept you from medical appts, meetings, work or from getting things needed for daily living? No 01/17/2023 Utilities Answer Date Recorded In the past 12 months, has t he electric, gas, oil or water company threatened to shut off services in your home? No 01/17/2023 Depression Answer Date Recorded Patient Health Questionnaire-2 Score 0 08/01/2022 Comments Unknown Sex and Gender Information Value Date Recorded Sex Assigned at Female 02/07/2022 10:16 AM EDT Legal Sex Female 10:16 AM EDT Gender Identity Female 02/07/2022 10:16 AM EDT Sexual Orientation Straight 02/07/2022 10 :16 AM EDT documented as of this encounter Plan of Treatment Upcoming Encounters Date Type Department Care Team (Late st Contact Info) Description 02/27/2025 11:00 AM EST Clinical Support [facility] MEDICINE [address] [place] [address] 03/12/2025 11:30 AM EST Office Visit [facility] OPTOMETRY [address] [place] [address] Dimitry, Ketty, OD [address] [place] [address] 04/08/2025 10:00 AM EST Telemedicine [facility] MEDICINE [address] [place] [address] Loly Sheridan MD [address] [place] [address] documented as of this encounter Visit Diagnoses Not on filedocumented in this encounter Additional Health Concerns Assessment Noted Time PHQ-9 Depression Total Score: 0 08/02/19 23 2:59 PM EDT documented as of this encounter Care Teams Energy Derivatives Trader Relationship Specialty Start Date End Date Loly Sheridan MD [address] [place] [phone] PCP - General Family Medicine 12/20/17 documented as of this encounter
--- OUTSIDE RECORDS SUMMARY | 2025-02-21 11:08 | XMS_ITS | Encounter Summary ---
Author Organization [employer] Address [address] [facility] 7t [place] [address] Care Team Providers Care Director [employer] Name Role Phone Loly Sheridan MD Primary Care Provide r Encounter Details Date Type Department Care Team (Latest Contact Info) Description 02/20/2025 Travel Social History Tobacco Use Types Packs/Day Years [...] the past 12 months, has t he SchoolFeed, gas, oil or water company threatened to [...] Description 02/27/2025 11:00 AM EST Clinical Support [facility] MEDICINE [address] [place] [address] 03/12/2025 11:30 AM EST Office Visit [facility] OPTOMETRY [address] [place] [address] Dimitry, Ketty, OD [address] [place] [address] 04/08/2025 10:00 AM EST Telemedicine [facility] MEDICINE [address] [place] [address] Loly Sheridan MD [address] [place] [address] documented as of this encounter Visit Diagnoses Not on filedocumented in this encounter Additional Health Concerns Assessment Noted Time PHQ-9 Depression Total Score: 0 08/10/19 25 9:14 AM EDT documented as of this encounter Care Teams Director [employer]ery [employer] Relationship Specialty Start Date End Date Loly Sheridan MD [address] [place] [address] PCP - General Family Medicine 12/20/17 documented as of this encounter
--- OUTSIDE RECORDS SUMMARY | 2025-02-21 11:08 | XMS_ITS | Encounter Summary ---
Author Organization [employer] Address [address] [place] [address] Care Team Providers Care Shuttleless Loom Weaver Name Role Phone Loly Sheridan MD Primary Care Provide r Encounter Details Date Type Department Care Team (Late st Contact Info) Description 01/17/2023 Orders Only [facility] MEDICINE [address] [place] [address] Provider, MD Seda Social History Tobacco Use Types Packs/Day Years [...] t he electric, gas, oil or water [employer] threatened to shut off services in your [...] Description 02/27/2025 11:00 AM EST Clinical Support [facility] MEDICINE [address] [place] [address] 03/12/2025 11:30 AM EST Office Visit [facility] OPTOMETRY [address] [place] [address] Dimitry, Ketty, OD [address] [place] [address] 04/08/2025 10:00 AM EST Telemedicine [facility] MEDICINE [address] [place] [address] Loly Sheridan MD [address] [place] [address] documented as of this encounter Procedures Procedure Name Priority Date/Time Associated Diagnosis Comments COLONOSCOPY Routine 04/21/2015 documented in this encounter Results * Colonoscopy (04/21/2015) Historical Provider HEALTH MAINTENANCE Final Result documented in this encounter Visit Diagnoses Not on filedocumented in this encounter Additional Health Concerns Assessment Noted Time PHQ-9 Depression Total Score: 0 08/02/19 23 2:59 PM EDT documented as of this encounter Care Teams Shuttleless Loom Weaver Relationship Specialty Start Date End Date Loly Sheridan MD [address] [place] [id number] PCP - General Family Medicine 12/20/17 documented as of this encounter
--- OUTSIDE RECORDS SUMMARY | 2025-02-21 11:08 | XMS_ITS | Encounter Summary ---
Author Organization [employer] Address [address] [facility] 7t [place] [address] Care Team Providers Care Shoe Folder Name Role Phone Loly Sheridan MD Primary Care Provide r Encounter Details Date Type Department Care Team ([facility] st Contact Info) Description 10/04/2024 Orders Only [facility] MEDICINE [address] [place] [address] Loly Sheridan MD [address] [place] [address] Social History Tobacco Use Types Packs/Day Years [...] Answer Date Recorded Internet Access Q1 Yes 08/09/2024 Internet Access Q2 I cannot afford it 08/09/2024 Comments Unknown Sex and Gender Information Value [...] Description 02/27/2025 11:00 AM EST Clinical Support [facility] MEDICINE [address] [place] [address] 03/12/2025 11:30 AM EST Office Visit [facility] OPTOMETRY [address] [place] [address] Dimitry, Ketty, OD [address] [place] [address] 04/08/2025 10:00 AM EST Telemedicine [facility] MEDICINE [address] [place] [address] Loly Sheridan MD [address] [place] [address] documented as of this encounter Visit Diagnoses Not on filedocumented in this encounter Additional Health Concerns Assessment Noted Time PHQ-9 Depression Total Score: 0 08/10/19 9:14 AM EDT documented as of this encounter Care Teams Shoe Folder Relationship Specialty Start Date End Date Loly Sheridan MD [address] [place] [address] PCP - General Family Medicine 12/20/17 documented as of this encounter
--- OUTSIDE RECORDS SUMMARY | 2025-02-21 11:09 | XMS_ITS | Clinical Summary ---
Author Organization [employer] Address [address] [place] [address] [address] [place] [address] Care Team Providers Care Skid Strapper Name Role Phone Loly Sheridan MD Primary Care Provide r Allergies Active Allergy Reactions Criticality Noted Date Comments Octacosanol 09/18/2023 Watery eyes Medications ondansetron ODT (Zofran-ODT) 4 MG disintegrating tabletIndications :Gastroesophageal reflux disease, unspecified whether esophagitis present Take 2 tablets (8 mg) by mouth every 8 (eight) hours if needed for nausea or vomiting. 30 tablet 024 Active cholecalciferol (D3 Super Strength) 50 MCG (1999 UT) capsuleIndication s:Vitamin D deficiency Take 1 capsule (50 mcg) by mouth Once per day. 90 capsule 1 025 Active naproxen (Naprosyn) 500 MG tabletIndications :Fibromyalgia TAKE 1 TABLET BY MOUTH TWICE DAILY WITH BREAKFAST AND WITH DINNER 60 tablet 1 025 Active loratadine (Claritin) 10 MG tabletIndications :Seasonal allergies Take 1 tablet (10 mg) by mouth Once per day. 30 tablet 025 Active fluticasone (Flonase) 50 MCG/ACT nasal sprayIndications: Seasonal allergies Administer 1 spray into each nostril Once per day. Shake gently. Before first use, prime pump. After use, clean tip and replace cap. 48 g 1 025 Active pravastatin (Pravachol) 20 MG tabletIndications :Mixed hyperlipidemia Take 1 tablet (20 mg) by mouth Once per day. 30 tablet 2 025 2025 Active famotidine (Pepcid) 20 MG tabletIndications :Gastroesophageal reflux disease, unspecified whether esophagitis present Take 1 tablet (20 mg) by mouth 2 times daily. 180 tablet 1 Active dicyclomine (Bentyl) 20 MG tabletIndications :Irritable bowel syndrome with both constipation and diarrhea Take 1 tablet (20 mg) by mouth if needed in the morning, at noon, and at bedtime (take if needed). 30 tablet 1 025 2025 Active ondansetron (Zofran) 4 MG tabletIndications :Nausea Take 2 tablets (8 mg) by mouth every 8 (eight) hours if needed for nausea or vomiting. 20 tablet Active famotidine (Pepcid) 20 MG tabletIndications :Gastroesophageal reflux disease, unspecified whether esophagitis present Take 1 tablet (20 mg) by mouth 2 times daily. 180 tablet 1 025 2024 Discontinued(R eorder (will not trigger notification to Pharmacy)) dicyclomine (Bentyl) 20 MG tabletIndications :Irritable bowel syndrome with both constipation and diarrhea Take 1 tablet (20 mg) by mouth before breakfast, before lunch, before evening meal, and at bedtime. 30 tablet 1 025 2024 Discontinued(R eorder (will not trigger notification to Pharmacy)) ondansetron (Zofran) 4 MG tabletIndications :Nausea TAKE 2 TABLETS BY MOUTH EVERY 8 HOURS NEEDED FOR NAUSEA AND VOMITING FOR UP TO 7 DAYS 20 tablet 025 2024 Discontinued(R eorder (will not trigger notification to Pharmacy)) Active Problems Problem Noted Date Diagnosed Date Memory deficits 02/20/2025 Mixed hyperlipidemia 02/20/2025 Diminished vision 08/09/2024 Missing teeth, acquired 02/21/2024 Dental calculus 02/21/2024 Dental caries 02/21/2024 Periodontal disease 02/21/2024 Nausea 02/01/2024 Chronic left shoulder pain 02/01/2024 Assessment & Plan (02/01/2024 11:24 AM EDT): XRAY ordered again Referral to orthopedics today Acute pain of left shoulder 11/01/2023 Elevated blood pressure reading 11/01/2023 Assessment & Plan (11/01/2023 4:33 PM EDT): Possibly due to pain I will continue to monitor Palpitations 08/02/2023 Assessment & Plan (11/01/2023 4:35 PM EDT): Cardiology referral is in process TSH normal Assessment & Plan (08/02/2023 12:26 PM EDT): I ordered TSH and referred patient to cardiology, HR sinus and regular rate on today's physical exam Other chest pain 08/02/2023 Assessment & Plan (08/02/2023 12:27 PM EDT): Cardiology referral Dizziness 08/02/2023 Assessment & Plan (08/02/2023 12:27 PM EDT): Blood work ordered, patient to be contacted with lab results I advise proper hydration and to change positions slowly Irritable bowel syndrome wit h both constipation and diarrhea 08/02/2023 Assessment & Plan (08/09/2024 10:05 AM EDT): I have refilled her fentanyl and advised to follow-up with gastroenterology Assessment & Plan (08/02/2023 12:26 PM EDT): Referral to GI may continue with danny if needed H pylori test ordered again Fibromyalgia 04/20/2023 Assessment & Plan (08/09/2024 10:05 AM EDT): Patient was educated about multidisciplinary approach for her condition, it was advise cardiovascular exercise, maintain hydration, treat anxiety/depression and take medications as directed Assessment & Plan (02/01/2024 11:25 AM EDT): Patient was educated about multidisciplinary approach for her condition, it was advise cardiovascular exercise, maintain hydration, treat anxiety/depression and take medications as directed I discontinue gabapentin, I will prescribe naproxen PRN Assessment & Plan (11/01/2023 4:34 PM EDT): Patient was educated about multidisciplinary approach for her condition, it was advise cardiovascular exercise, maintain hydration, treat anxiety/depression and take medications as directed I will go up on her gabapentin to 300mg TID Assessment & Plan (04/20/2023 4:29 PM EST): Patient was educated about multidisciplinary approach for her condition, it was advise cardiovascular exercise, maintain hydration, treat anxiety/depression and take medications as directed I stop duloxetine and start her on gabapentin Epigastric pain 03/23/2023 Assessment & Plan (04/20/2023 4:30 PM EST): h pylori order will be mail C/w pepcid and zofran PRN Assessment & Plan (03/23/2023 10:03 AM EST): I advise patient to avoid NSAIDs, spicy and acid food, I advise to eat at the same time every day, I advise to elevate the head of the bed and take medications as prescribe Allergies 03/23/2023 Encounter for Papanicolaou s mear for cervical cancer screening 11/17/2022 Generalized body aches 11/17/2022 Assessment & Plan (03/23/2023 10:02 AM EST): I advise exercise Acetaminophen PRN I advise to take her duloxetine BID Assessment & Plan (12/19/2022 4:03 PM EDT): I advise patient to take medication as prescribed I advise cardiovascular exercise Assessment & Plan (11/17/2022 10:55 AM EDT): I'm suspecting patient has fibromyalgia Patient was educated about multidisciplinary approach for her condition, it was advise cardiovascular exercise, maintain hydration, treat anxiety/depression and take medications as directed I will start her on cymbalta 30mg daily RTC 4 weeks Other fatigue 08/01/2022 Assessment & Plan (08/01/2022 3:26 PM EDT): Post COVID? I will order labs to r/o other reasons Encounter for preventive health examination 07/10 Assessment & Plan (08/02/2023 12:28 PM EDT): See HPI Assessment & Plan (08/01/2022 3:26 PM EDT): Please refer to HPI Colon cancer screening 08/01/2022 Breast cancer screening by mammogram 08/01/2022 Viral URI 07/13/2022 Assessment & Plan (07/13/2022 3:26 PM EDT): I advise to drink plenty of fluids and rest Acetaminophen PRN Loratadine 10mg at bed time Mood disorder 03/17/2017 Gastroesophageal reflux disease 01/21/2015 Assessment & Plan (08/09/2024 10:04 AM EDT): I advise patient to avoid NSAIDs, spicy and acid food, I advise to eat at the same time every day, I advise to elevate the head of the bed and take medications as prescribe Assessment & Plan (11/01/2023 4:33 PM EDT): GI referral printed and given to patient Assessment & Plan (12/19/2022 4:03 PM EDT): I advise patient to avoid NSAIDs, spicy and acid food, I advise to eat at the same time every day, I advise to elevate the head of the bed and take medications as prescribe Assessment & Plan (08/01/2022 3:25 PM EDT): Possibly causing burning sensation on her through I advise patient to avoid NSAIDs, spicy and acid food, I advise to eat at the same time every day, I advise to elevate the head of the bed and take medications as prescribe Recurrent major depressive episodes, mild 2014 Encounters Date Type Department Care Team Description 02/20/2025 9:00 AM EST Office Visit [facility] MEDICINE [address] [place] [address] Loly Sheridan MD Irritable bowel syndrome with both constipation and diarrhea (Primary Dx); Memory deficits; Fibromyalgia; Mixed hyperlipidemia; Gastroesophageal reflux disease, unspecified whether esophagitis present; Nausea 02/20/2025 Travel 02/13/2025 Patient Outreach [facility] CH[facility] MED & PEDS [address] [place], [place] [phone] Loly Sheridan MD Pre-visit Planning (SDOH was already completed. 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); Itchy eyes; Combined forms of age-related cataract of both eyes; Presbyopia 01/21/2025 Travel 12/10/2024 11:15 AM EDT Office Visit [facility] MEDICINE [address] [place] [address] Okhipo, Doreen, ACID REGENERATOR Sore throat (Primary Dx); Seasonal allergies 12/10/2024 Travel 12/10/2024 Telephone [facility] MEDICINE [address] [place] [address] Loly Sheridan MD Nurse Triage from Last 3 Months Immunizations Immunization Administration Dates Next Due Influenza injectable quadriv alent IIV4 with preservative 12/19/2022,05/16/2019,01/21/2015 Influenza, High Dose Seasona l, Preservative Free 02/01/2024 Pfizer Covid-19 Vaccine 12+ 02/01/2024 Pneumococcal Conjugate PCV 20 02/01/2024 Tdap 01/21/2015 Family History Medical History Relation Name Comments Cancer Father Diabetes Sister Hypertension Sister Relation Name Status Comments Father Sister Social History Tobacco Use Types Packs/Day Years Used Date Smoking Tobacco: Never Passive Smoke Exposure: Never Smokeless Tobacco: Never Tobacco Cessation:Counseling Given: Not Answered Alcohol Use Standard Drinks/Week Comments Never 0 [...] Orientation Straight 02/07/2022 10 :16 AM EDT Last Filed Vital Signs Vital Sign Reading [...] Mass Index 33.91 02/20/2025 9:02 AM EST Plan of Treatment Upcoming Encounters Date Type Department Care Team (Late st Contact Info) Description 02/27/2025 11:00 AM EST Clinical Support [facility] MEDICINE [address] [place] [address] 03/12/2025 11:30 AM EST Office Visit [facility] OPTOMETRY [address] [place] [address] Dimitry, Ketty, OD [address] [place] [address] 04/08/2025 10:00 AM EST Telemedicine [facility] MEDICINE [address] [place] [address] Loly Sheridan MD [address] [place] [address] Health Maintenance Due Date Last Done Comments CT Colonography 1960 FIT DNA/Cologuard 1960 FIT 1960 FOBT 1960 Sigmoidoscopy 1960 Zoster Vaccines (1 of 2) 2008 Dental X-Ray: Bitewings 04/25/2019 04/24/2018, 02/18 Dental Prophylaxis 08/21/2024 02/21/2024, 0 09/22/2017, 12/14/2016, Additional history exists Mammogram 09/14/2024 09/15/2023, 06/05/2022, 09/09/2022, Additional history exists Dental Oral Exam 09/18/2024 09/18/2023, , 12/14/2016, Additional history exists COVID-19 Vaccine ( season) 2024 02/01/2024, 09/09/2021, 05/13/2021, Additional history exists Influenza Vaccine (#1) 2024 , 12/19/2022, 05/16/2019, Additional history exists DTaP/Tdap/Td Vaccines (2 - Td or Tdap) 01/21/2025 01/21/2015 Colonoscopy 04/21/2025 04/21/2015 Colorectal Cancer Screening 04/21/2025 Alcohol/Substance Use Screening 08/09/2025 08/09/2024 Depression Screening 08/09/2025 08/09/2024, 08/10/19 SDOH Screening 08/09/2025 08/09/2024 Tobacco Screening 02/20/2026 02/20/2025 Dental X-Ray: Full Mouth 09/18/2026 024, 04/24/2018, 02/19/2016 RSV Patients and Patients Aged 60 years or older (1 - 1-dose 75+ series) 2033 Cervical Cancer Screening Discontinued HPV/Cotest Discontinued 11/17/2022, 02/13/2017 Pap Smear Discontinued 11/17/2022 Hepatitis C Screening Completed 08/02/2023 Pneumococcal Vaccine: 50+ Years Completed 02/01/2024 HIB Vaccines Aged Out No longer eligi ble based on patient's age to complete this topic HPV Vaccines Aged Out No longer eligi ble based on patient's age to complete this topic Hepatitis A Vaccines Aged Out No long er eligible based on patient's age to complete this topic Hepatitis B Vaccines Aged Out No long er eligible based on patient's age to complete this topic IPV Vaccines Aged Out No longer eligi ble based on patient's age to complete this topic Meningococcal B Vaccine Aged Out No l onger eligible based on patient's age to complete this topic Meningococcal Vaccine Aged Out No jony trevon eligible based on patient's age to complete this topic RSV under 20 months Aged Out No longe r eligible based on patient's age to complete this topic Rotavirus Vaccines Aged Out No longer eligible based on patient's age to complete this topic Procedures Procedure Name Priority Date/Time Associated Diagnosis Comments HEMOGLOBIN A1C Routine 02/21/2025 10:12 AM EST Fibromyalgia CBC WITH AUTO DIFFERENTIAL Routine 02/21/2025 10:12 AM EST Fibromyalgia AMB REFERRAL TO OPHTHALMOLOGY Routine 01/30/2025 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) FUNDUS PHOTOS - OU - BOTH EYES Routine 01/21/2025 1:25 PM EDT 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) POC DELA CRUZ ID NOW STREP A Routine 12/10/2024 11:14 AM EDT Sore throat Seasonal allergies POCT COVID-19 AG DELA CRUZ ID NOW Routine 12/10/2024 11:14 AM EDT Sore throat Seasonal allergies PROPHYLAXIS - ADULT Routine 02/21/2024 8 :00 AM EST Dental calculus Periodontal disease PANORAMIC RADIOGRAPHIC IMAGE Routine 09/18/2023 1:30 PM EDT PERIODIC ORAL EVALUATION - ESTABLISHED PATIENT Routine 09/18/2023 1:30 PM EDT BI MAMMOGRAM SCREENING TOMOSYNTHESIS BILATERAL Routine 09/15/2023 11:07 AM EDT HEPATITIS C AB W/REFL TO HCV RNA, QN, PCR Routine 08/02/2023 10:28 AM EDT Dizziness HPV MRNA E6/E7 REFLEX TO HPV 16, 18/45 Routine 11/17/2022 12:00 AM EDT PAP SMEAR Routine 11/17/2022 12:00 AM EDT INTRAORAL - COMPLETE SERIES OF RADIOGRAPHIC IMAGES Routine 04/24/2018 12:00 AM EST HM COLONOSCOPY Routine 04/21/2015 from Last 3 Months or Most Recently Relevant to Health Maintenance Results * (ABNORMAL) CBC auto differential (02/21/2025 10:12 AM EST) White Blood Count 7.5 4.8 - 10.8 X10*3/uL [facility] Red Blood Count 4.36 4.20 - 5.50 X10*6/uL [facility] Hemoglobin 13.2 12.0 - 16.0 g/dl [facility] Hematocrit 39.9 37.0 - 47.0 % [facility] Mean Corpuscular Volume 91.5 80.0 - 98.0 fL [facility] Mean Corpuscular Hemoglobin 30.3 27.0 - 33.0 pg [facility] Mean Corpuscular HGB Conc 33.1 31.0 - 35.0 g/dl [facility] Red Cell Distribution Width 13.2 11.0 - 16.0 % [facility] Platelet Count 331 160 - 400 X10*3/uL [facility] Mean Platelet Volume 9.3(L) 9.4 - 12.3 fL [facility] Neutrophils Percent Auto 59.8 45 - 73 % [facility] Imm Gran Pct Auto 0.4 0.0 - 0.4 % [facility] Lymphocytes Percent Auto 30.3 20 - 40 % [facility] Monocytes Percent Auto 6.1 2 - 11 % [facility] Eosinophils Percent Auto 2.5 0 - 4 % [facility] Basophils Percent Auto 0.9 0 - 2 % [facility] NRBC Pct Auto 0.0 0.0 - 0.2 /100WBC [facility] Neutrophils Absolute Auto 4.5 2.0 - 8.3 x10*3/uL [facility] Imm Gran Abs Auto 0.03 0.00 - 0.03 X10*3/uL [facility] Lymphocytes Absolute Auto 2.3 1.2 - 4.9 X10*3/uL [facility] Monocytes Absolute Auto 0.5 0.1 - 1.2 X10*3/uL [facility] Eosinophils Absolute Auto 0.2 0.0 - 0.4 X10*3/uL [facility] Basophils Absolute Auto 0.1 0.0 - 0.2 X10*3/uL [facility] NRBC Abs Auto 0.000 0.0 - 0.012 X10*3/uL [facility] Blood Venous blood specimen / Unknown 02/21/2025 10:12 AM EST 02/21/2025 10:12 AM EST us Loly Guzman MD LAB BLOOD ORDERABLES Final Result [facility] [address] [place] [phone] * Hemoglobin A1c (02/21/2025 10:12 AM EST) Hemoglobin A1c 5.0 <6.0 % [facility] Comment:Hemoglobin A1C Refer ence Range Adults: 4.8 - 6.0 % Non diabetic: < 6.0 % Goal: < 7.0 %Additional Action Suggested: > 8.0 %Note: Hemoglobin A1c results are invalid for patients with abnormal amounts of HbF. Blood transfusions may impact the HbA1c concentration in the patient sample. Estimated Average Glucose 97 mg/dL [facility] Comment:eAG = Estimated ave rage glucose which is %A1C expressed asaverage glucose, using the formula of the E8W-[id number] Glucose study (ADAG), Diabetes Care, Vol.31,#8,Nov. 2007 Blood Venous blood specimen / Unknown 02/21/2025 10:12 AM EST 02/21/2025 10:12 AM EST us Loly Guzman MD LAB BLOOD ORDERABLES Final Result Performing Organization Address City/State/[facility] Co de Phone Number [facility] [address] [place] [phone] * Referral to Ophthalmology (01/30/2025) us Ketty Moraes OD OUTPATIENT REFERRAL ORDERABLE S Final Result * Fundus Photos - OU - Both Eyes (01/21/2025 1:25 PM EDT) Narrative Ketty Moraes, OD - 01/21/2025 1:25 PM EDT Images from the original result were not included. Right Eye Progression has been stable. Disc findings include normal observations. Macula findings include normal observations. Vessel findings include normal observations. Periphery findings include (1DD flat choroidal nevus without drusen or lipofuscin at 9:00). Left Eye Progression has no prior data. Disc findings include normal observations. Macula findings include normal observations. Vessel findings include (Branch retinal vein occlusion with corkscrew vessels and exudates in superotemporal midperiphery). Periphery findings include (Few blot hemes in superotemporal periphery). Notes Assessment and Plan: Stable flat choroidal nevus in the right eye at 9:00. Branch retinal vein occlusion vs venous stasis retinopathy vs early OIS in the superotemporal midperiphery of the left eye. Will refer to a retinal specialist for evaluation. Ketty Moraes OD OPHTH PHOTOGRAPHY Final Resul t * POCT Rapid Strep A DELA CRUZ ID NOW (12/10/2024 11:14 AM EDT) Pathologist [facility] Rapid Strep A Screen Negative Negative, None Detected QC Media Lot # [id number] Lot# Expiration Date Swab 12/10/2024 11:1 4 AM EDT Doreen Deveno ACID REGENERATOR POINT OF CARE TEST ENTER/EDIT ORDERABLES Final Result * POCT Rapid Covid-19 DELA CRUZ ID NOW (12/10/2024 11:14 AM EDT) [facility] Coronavirus Antigen PCR Negative Negative, Indeterminate, None Detected, Invalid, Specimen unsatisfactory for evaluation, Weakly Positive, 2+ QC Media Lot # [id number] Lot# Expiration Date Swab 12/10/2024 11:1 4 AM EDT Doreen [employer] ACID REGENERATOR POINT OF CARE TEST ENTER/EDIT ORDERABLES Final Result * BI Mammogram Screening Tomosynthesis Bilateral (09/15/2023 11:07 AM EDT) Anatomical Region Laterality Modality Breast Bilateral Mammography 09/15/2023 11:0 7 AM EDT Narrative 10/10/2023 8:53 AM EDT [facility] [address] [place] [address] Mammography Report Signed Patient: Loly Magaña V MR#: [id number] : 1960 Acct:[id number] Age/Sex: 62 / F ADM Date: 09/15/23 Loc: [facility] Attending Dr: Loly Guzman MD Ordering Physician: Loly Sheridan MD Results: 2Benign Findings Date of Service: 09/15/23 Follow Up: 1 Year From Orig inal Mammogram Procedure(s): MM tomosynthesis screening BI Accession Number(s): [id number] cc: Loly Sheridan MD EXAMINATION: MM SCREENING DIGITAL BREAST TOMOSYNTHESIS, BILATERAL CLINICAL INFORMATION: Screening. Asymptomatic. COMPARISON: Mammography: This study is compared with prior exams dating back to 2019. TECHNIQUE: Digital breast tomosynthesis is performed in both the craniocaudal and mediolateral oblique views along with computer-aided detection (CAD). Synthesized 2D images are generated from the tomosynthesis. FINDINGS: There are scattered areas of fibroglandular density (ACR BI-RADS breast composition Category b). There are no significant masses, abnormal calcifications, or other abnormalities. There is a biopsy tissue marker in the upper outer quadrant of the left breast. MM/MM tomosynthesis screening BI IMPRESSION: No mammographic evidence of malignancy. ASSESSMENT: BI-RADS BI-RADS 2 - Benign Findings RECOMMENDATION: Routine annual mammography screening. 1 year F/U This examination should not preclude the clinical evaluation of a suspicious palpable abnormality. This patient's information was entered into a reminder system with a target due date for their next mammogram. Dictated By: Shanika Leavitt MD Signed By: <Electronically signed by Shanika Leavitt MD in OV> 10/10/23 0850 DD/ 1107 TD/TT: Armature Connector: Procedure Note Donotuseinterpreter, Image - 10/10/2023 [facility] [address] [place] [address] Mammography Report Signed Patient: Loly Magaña VMR#: [id number] : 9Acct:[id number] Age/Sex: 62 / FADM Date: 09/15/23 Loc: JOEL Attending Dr: Loly Guzman MD Ordering Physician: Loly Sheridan MDResults: 2Benign Findings Date of Service: 09/15/23Follow Up: 1 Year From Orig inal Mammogram Procedure(s): MM tomosynthesis screening BI Accession Number(s): [id number] cc: Loly Sheridan MD EXAMINATION: MM SCREENING DIGITAL BREAST TOMOSYNTHESIS, BILATERAL CLINICAL INFORMATION: Screening. Asymptomatic. COMPARISON: Mammography: This study is compared with prior exams dating back to 2019. TECHNIQUE: Digital breast tomosynthesis is performed in both the craniocaudal and mediolateral oblique views along with computer-aided detection (CAD). Synthesized 2D images are generated from the tomosynthesis. FINDINGS: There are scattered areas of fibroglandular density (ACR BI-RADS breast composition Category b). There are no significant masses, abnormal calcifications, or other abnormalities. There is a biopsy tissue marker in the upper outer quadrant of the left breast. MM/MM tomosynthesis screening BI IMPRESSION: No mammographic evidence of malignancy. ASSESSMENT: BI-RADS BI-RADS 2 - Benign Findings RECOMMENDATION: Routine annual mammography screening. 1 year F/U This examination should not preclude the clinical evaluation of a suspicious palpable abnormality. This patient's information was entered into a reminder system with a target due date for their next mammogram. Dictated By: Shanika Leavitt MD Signed By: <Electronically signed by Shanika Leavitt MD in OV> 10/10/23 0850 DD/ 1107 TD/TT: Armature Connector: us Loly Guzman MD IMG BI PROCEDURES Abraham antonio Result - Final * Hepatitis C Antibody with Reflex to HCV, RNA, Quantitative, Real-Time PCR (08/02/2023 10:28 AM EDT) Hepatitis C Antibody Nonreactive Nonreactive [facility] Comment:Antibodies to HCV no t detected; does not exclude early acuteHCV infection. Blood Venous blood specimen / Unknown 08/02/2023 10:28 AM EDT 08/02/2023 11:22 AM EDT us Loly Guzman MD LAB BLOOD ORDERABLES Final Result [facility] [address] [place] [phone] * HPV mRNA E6/E7 w/Reflex to HPV Genotypes 16, 18/45 (11/17/2022 12:00 AM EDT) HPV nRNA E6/E7 Not Detected Not Detected [facility] Comment:Methodology: Transcr iption-Mediated AmplificationThis assay detects E6/E7 viral messenger RNA (mRNA) from 14high-risk HPV types (16,18,31,33,35,39,45,51,52,56,58,59,66,68).Cervical sources are required for HPV testing.If a vaginal source from a patient who has had atotal hysterectomy with removal of cervix wassubmitted, please contact the testing laboratoryfor alternative testing options.For additional information, please refer [email or web address](This link if provided for information/educational purposes only.)THIS TEST WAS PERFORMED AT:[id number] [place] [phone] DHALIWAL MD HPV mRNA E6/E7 [facility] LABS HPV 16 RNA [facility] HPV 18/45 RNA [facility] 11/17/2022 11/18/2022 9:3 0 AM EDT Loly Guzman MD LAB CYTOLOGY ORDERABL ES Final Result [facility] [address] [place] [phone] * Pap Smear (11/17/2022 12:00 AM EDT) 11/17/2022 11/18/2022 9:3 0 AM EDT Narrative [facility] - 12/06/2022 10:21 AM EDT ----- ------- Name: Loly Magaña V Age/Sex: 62/F : 1960 Unit#: [id number] Attend Dr: Loly Sheridan MD Re11/17/22 Status: [facility] REF Location: [facility] Disch: ----- ------- SPEC : [id number] RECD: 11/18/22 STATUS: [facility] NUM: [id number] ZEFERINO: 11/17/22-[address]: Loly Sheridan MD ENTERED: 11/18/225 SP TYPE: Pap Smr OTHR DR: ORDERED: Pap Smear Interpretation Satisfactory for evaluation. Negative for intraepithelial lesion or malignancy. HPV mRNA E6/E7: NOT DETECTED This assay detects E6/E7 viral messenger RNA (mRNA) from 14 high-risk HPV types (16, 18, 31, 33, 35, 39, 45, 51, 52, 56, 58, 59, 66, 68) HPV testing performed by [employer], [place], [place]. See reference laboratory pion of the EMR for entire report. Clinical Information LMP:Unknown date Previous PAP test:Unknown date/findings Material Received ThinPrep-Vaginal/Cervical ----- ------- Signed (signature on file) JANESSA Garcia ([facility]) 12/06/22 1021 ----- ------- END OF REPORT us Loly Guzman MD LAB CYTOLOGY ORDERABL ES Final Result [facility] [address] [place] [phone] * Colonoscopy (04/21/2015) us Historical Provider HEALTH MAINTENANCE Final Result from Last 3 Months or Most Recently Relevant to Health Maintenance [place] [address] [address] [place] [address] STANDARD FORMERLY [facility] OPTIONS (HMO D-SNP) DENTAL - [facility] Care Teams Skid Strapper Relationship Specialty Start Date End Date Loly Sheridan MD [address] [place] [address] PCP - General Family Medicine 12/20/17
[2025-02-21 11:24] LABS: Alanine Aminotransferase 21 U/L (0-31); Albumin Level 4.5 g/dL (3.5-5.0); Alkaline Phosphatase 95 U/L (39-117); Anion Gap 12 (12-20); Aspartate Amino Transferase 23 U/L (5-31); Blood Urea Nitrogen 9 mg/dL (9-16); Calcium 9.8 mg/dL (8.4-10.2); Carbon Dioxide 26 mmol/L (22-29); Chloride 109 mmol/L (96-108); Cholesterol 237 mg/dL (<200); Estimated Glomerular Filt Rate > 60; HDL Cholesterol 56 mg/dL (>40); Potassium 3.8 mmol/L (3.3-5.1); Sodium 143 mmol/L (135-145); Total Protein 7.6 g/dL (6.5-8.0); Triglycerides 220 mg/dL (<150)
[2025-02-21 11:31] LABS: HIV Num 1 0.04 S/CO (0.00-0.99); ~HepC Num1 0.07 S/CO (0.00-0.79); ~Hepatitis C Antibody Nonreactive (Nonreactive)
[2025-02-21 11:48] LABS: Folate 14.3 ng/mL (> or = 4.0); Vitamin B12 245 pg/mL (200-900)
== END 2025-02-21 09:53 | disposition home or self-care (01) ==
LOC: HO.LAB 09:52
PROVIDERS: PCP Internal Medicine; Visit Provider Internal Medicine
DX: M79.7 Fibromyalgia (principal); R41.3 Other amnesia; Z13.6 Encounter for screening for cardiovascular disorders; Z13.1 Encounter for screening for diabetes mellitus; Z11.4 Encounter for screening for human immunodeficiency virus [HIV]; Z11.59 Encounter for screening for other viral diseases; Z20.6 Contact with and (suspected) exposure to human immunodeficiency virus [HIV]; Z20.5 Contact with and (suspected) exposure to viral hepatitis
CPT/HCPCS: 36415; 80053; 80061; 82306; 82607; 82746; 83036; 84443; 85025; 86592; 86803; 87389

== ENCOUNTER 2025-04-07 11:01 | Outpatient (AMB) | payer OTHER, SELFPAY ==
--- NOTE | 2025-04-07 11:02 | A.OFFVIS_ITS ---
Vital Signs 04/07/25 11:03 Height 5 ft 2 in Weight 171 lb 15.369 oz BMI 31.4 BP 122/78 Blood Pressure Location Lt brachial Position Sitting Pulse 64 Intake Visit Reasons: 1 yr follow up Intake Note: 1 year follow-up with ekg feeling good Apartment Rental Clerk Required: Yes Apartment Rental Clerk Services: Apartment Rental Clerk Offered & Declined Profile Grinder: Profile Grinder Present Accompanied by: Son Allergies No Known Allergies (No Known Allergies*) Allergy (Verified 12/06/23 13:30) Medication List - Last Reconciled 04/07/25 by Eran Ni MD acetaminophen 500 mg PO Q6H PRN cholecalciferol (vitamin D3) (Vitamin D3) 50 mcg PO DAILY cyclobenzaprine 5 mg PO TID PRN dicyclomine 20 mg PO QID 30 days duloxetine 30 mg PO BID famotidine 20 mg PO BID fluticasone propionate 50 mcg/actuation 1 spray intranasal QAM loratadine 10 mg PO QAM meclizine 25 mg PO TID PRN ondansetron 8 mg PO Q8H PRN HPI Comments Details: Loly comes for follow-up, accompanied by her son. Son is presenting as senior vice president and chief information officer and they declined a certified senior vice president and chief information officer. Patient denies any exertional symptoms of chest pain or shortness of breath. She is pretty active for day-to-day life and is independent. I have today she comes in and says that she has left arm pain radiating to her chest area which she describes as sharp pressure like discomfort. Pain is worse with movement. It has been continuously present since yesterday afternoon 15:00.. In his lasted for more than 16 hours continuously. The no other associated symptoms. EKGs does not show any significant acute ischemic changes. She denies any lightheadedness, syncope. No prolonged palpitation irregular heartbeat. [facility] Medical History Irritable bowel syndrome with both constipation and diarrhea Surgical History H/O esophagogastroduodenoscopy H/O colonoscopy Hx of tubal ligation Family History Father No problems noted. Mother No problems noted. Brother CAD (coronary artery disease) Social History Alcohol intake: never Patient Tobacco Use Status: Never used Tobacco Review of Systems Const Denies chills, Denies fatigue, Denies fever(s), Denies frequent falls, Denies weakness, Denies weight gain and Denies weight loss ENT Denies dizziness Card Denies chest pain, Denies leg edema, Denies lightheadedness, Denies palpitations, Denies dyspnea, Denies dyspnea on exertion, Denies orthopnea and Denies other (loss of consciousness) Resp Denies cough, Denies dyspnea and Denies dyspnea on exertion GI Denies hematochezia and Denies change in stool character Musc Denies abnormal gait, Denies muscle weakness, Denies numbness, Denies radiating pain into limb and Denies tingling Neuro Denies Abnormal speech present, Denies abnormal gait, Denies dizziness, Denies frequent falls, Denies numbness, Denies tingling and Denies weakness Endo Denies fatigue and Denies palpitations Physical Exam Vital Signs: Last Vital Signs Pulse 64 04/07/25 11:03 BP 122/78 04/07/25 11:03 BMI result Body Mass Index 31.4 Const General: cooperative, comfortable, no acute distress, alert, awake and Physically active Nutritional Appearance: obese Orientation/consciousness: patient oriented x3 Limitations: no limitations HEENT Head: Yes normocephalic and Yes atraumatic Neck Neck: Yes trachea midline, Yes supple and Yes no JVD Carotids: no bruits Chest Chest palpation & inspection: other (Reproduce will pain over the upper left chest area) Resp Effort & Inspection: normal respiratory effort Auscultation: clear to auscultation bilaterally Cardio Jugular venous distension: no JVD Palpation: normal PMI Rate: regular rate Rhythm: regular rhythm Heart sounds: S1 normal heart sound present, S2 normal heart sound present, no click, no gallops, no murmurs and Rub heart sound present GI Auscultation: normal bowel sounds Skin General skin exam: no rashes or lesions noted Neuro General: patient oriented x3 and no focal motor deficits Speech: No Abnormal speech present Extrem General: Yes no clubbing, cyanosis or edema Office Procedures EKG Details: EKGs shows normal sinus rhythm with nonspecific STT wave changes with no left anterior fascicular block noted on today's EKGs. [id number], Complete Assessment & Plan Assessment & Plan (1) Non-cardiac chest pain: Code(s): R07.89 - Other chest pain Plan: Patient chest pain in his highly atypical and more suggestive of musculoskeletal chest pain not cardiac in origin given the length of chest pain with no EKGs changes. This was discussed with patient and patient's son. No further cardiac workup is indicated at this point in time. Continue risk factor modification through your office with management of her lipids. Target goal LDL less than 100 mg/dL. (2) Left anterior fascicular block: Code(s): I44.4 - Left anterior fascicular block Category: Medical Plan: Prior left anterior fascicular block which is not apparent on today's EKGs. No further interventions required. Can pursue yearly EKGs through your office. No further workup is indicated from that perspective. Will follow up in the clinic if need be. Thank you for allowing me to partake in her care Coding Level of Care Code Est Pt Level 3 (75233) Diagnoses Non-cardiac chest pain R07.89 Left anterior fascicular block I44.4 CPT Codes EKG - CPT: 24618-[id number], Complete ([id number])
[2025-04-07 11:03] VITALS: BP 122/78; PULSE 64; BMI 31.4
--- OUTSIDE RECORDS SUMMARY | 2025-04-07 12:51 | XMS_ITS | Encounter Summary ---
Author Organization [employer] Address [address] [facility] [address] [place] [address] Care Team Providers Care Regional Controller Name Role Phone Loly Sheridan MD Primary Care Provide r Reason for Visit * Reason Comments Med Refill Encounter Details Date Type Department Care Team ([facility] st Contact Info) Description 04/03/2025 Refill [facility] [address] [place] [address] Loly Sheridan MD [address] [place] [address] Irritable bowel syndrome with both constipation and diarrhea Social History Tobacco Use Types Packs/Day Years [...] Care Team (Late st Contact Info) Description 04/08/2025 10:00 AM EST Telemedicine [facility] [address] [place] [address] Loly Sheridan MD [address] [place] [address] 09/12/2025 10:30 AM EDT Office Visit [facility] [address] [place] [address] Dimitry, Ketty, OD [address] [place] [address] documented as of this encounter Visit Diagnoses Diagnosis Irritable bowel syndrome with both constipation and diarrhea documented in this encounter Additional Health Concerns Assessment Noted Time PHQ-9 Depression Total Score: 0 08/10/19 25 9:14 AM EDT documented as of this encounter Care Teams Regional Controller Relationship Specialty Start Date End Date Loly Sheridan MD [address] [place] [address] PCP - General Family Medicine 12/20/17 documented as of this encounter
--- OUTSIDE RECORDS SUMMARY | 2025-04-07 12:51 | XMS_ITS | Encounter Summary ---
Author Organization [employer] Address [address] [facility] [address] [place] [address] Care Team Providers Care Instrument Lens Grinder Name Role Phone Loly Sheridan MD Primary Care Provide r Encounter Details Date Type Department Care Team ([facility] st Contact Info) Description 10/04/2024 Orders Only [facility] [address] [place] [address] Loly Sheridan MD [address] [place] [address] Social History Tobacco Use Types Packs/Day Years [...] Info) Description 04/08/2025 10:00 AM EST Telemedicine [facility] [address] [place] [address] Loly Sheridan MD [address] [place] [address] 09/12/2025 10:30 AM EDT Office Visit [facility] [address] [place] [address] Dimitry, Ketty, OD [address] [place] [address] documented as of this encounter Visit Diagnoses Not on filedocumented in this encounter Additional Health Concerns Assessment Noted Time PHQ-9 Depression Total Score: 0 08/10/19 25 9:14 AM EDT documented as of this encounter Care Teams Instrument Lens Grinder Relationship Specialty Start Date End Date Loly Sheridan MD [address] [place] [id number] PCP - General Family Medicine 12/20/17 documented as of this encounter
--- OUTSIDE RECORDS SUMMARY | 2025-04-07 12:51 | XMS_ITS | Encounter Summary ---
Author Organization [employer] Address [address] [facility] [address] [place] [address] Care Team Providers Care Electric Track Switch Maintainer Name Role Phone Loly Sheridan MD Primary Care Provide r Encounter Details Date Type Department Care Team (Late st Contact Info) Description 01/17/[address] [facility] [address] [place] [address] Provider, MD Seda Social History Tobacco Use Types Packs/Day Years Used Date Smoking Tobacco: Never Passive Smoke Exposure: Never Smokeless Tobacco: Never Alcohol Use Standard Drinks/Week Comments Never 0 (1 standard drink = 0.6 oz pur e alcohol) Depression Answer Date Recorded Patient Health Questionnaire-9 Score 0 08/01/2022 Housing Stability Answer Date Recorded What is your housing situation today? I have arlinhoa patterson 01/17/[address] you [...] Info) Description 04/08/2025 10:[address] [facility] [address] [place] [address] Loly Sheridan MD [address] [place] [address] 09/12/2025 10:30 AM EDT Office Visit [facility] [address] [place] [address] Ketty Moraes, OD [address] [place] [address] documented as of this encounter Procedures Procedure [...] documented as of this encounter Care Teams Electric Track Switch Maintainer Relationship Specialty Start Date End Date Loly Sheridan MD [address] [place], [place] [phone] PCP - General Family Medicine 12/20/17 documented as of this encounter
--- OUTSIDE RECORDS SUMMARY | 2025-04-07 12:52 | XMS_ITS | Clinical Summary ---
Author Organization [email or web address] Address [address] [facility] [address] [place] [address] Care Team Providers Care Skull Splitter Name Role Phone Loly Sheridan MD Primary [...] Active cholecalciferol (D3 Super Strength) 50 MCG (1999) capsuleIndication s:Vitamin D deficiency Take 1 capsule (50 mcg) by mouth Once per day. 90 capsule 1 025 Active loratadine (Claritin) 10 MG [...] mouth Once per day. 30 tablet 2 5 11:47 AM EST 025 2025 Active famotidine (Pepcid) 20 MG tabletIndications :Gastroesophageal reflux disease, unspecified whether esophagitis present Take 1 tablet (20 mg) by mouth 2 times daily. 180 tablet 1 5 12:41 PM EST Active ondansetron (Zofran) 4 MG tabletIndications :Nausea Take 2 tablets (8 mg) by mouth every 8 (eight) hours if needed for nausea or vomiting. 20 tablet 5 12:41 PM EST Active naproxen (Naprosyn) 500 MG tabletIndications :Fibromyalgia TAKE 1 TABLET BY MOUTH TWICE DAILY WITH BREAKFAST AND WITH DINNER 60 tablet 1 5 3:17 PM EST 025 Active dicyclomine (Bentyl) 20 MG tabletIndications :Irritable bowel syndrome with both constipation and diarrhea TAKE 1 TABLET BY MOUTH THREE TIMES DAILY NEEDED 30 tablet 1 025 Active naproxen (Naprosyn) 500 MG tabletIndications :Fibromyalgia TAKE 1 TABLET BY MOUTH TWICE DAILY WITH BREAKFAST AND WITH DINNER 60 tablet 1 025 2024 Discontinued(R eorder (will not trigger notification to Pharmacy)) dicyclomine (Bentyl) 20 MG tabletIndications :Irritable bowel syndrome with both constipation and diarrhea Take 1 tablet (20 mg) by mouth if needed in the morning, at noon, and at bedtime (take if needed). 30 tablet 1 5 12:41 PM EST 025 2024 Discontinued Active Problems Problem Noted Date Diagnosed Date Moderate cognitive impairment 02/28/2025 Memory deficits 02/20/2025 Mixed hyperlipidemia 02/20/2025 Diminished [...] EDT): Referral to GI may continue with teresayl if needed H pylori test ordered again [...] (08/01/2022 3:26 PM EDT): Please refer to [facility] Colon cancer screening 08/01/2022 Breast cancer screening [...] Encounters Date Type Department Care Team Description 04/07/2025 Travel 04/03/2025 Refill [facility] [address] [place] [address] Loly Sheridan MD Irritable bowel syndrome with both constipation and diarrhea 03/28/2025 Telephone [facility] [address] [place] [phone] Loly Sheridan MD Care Coordination 03/13/2025 Travel 03/12/2025 11:00 AM EST Office Visit [facility] [address] [place] [phone] Dimitry, Ketty, OD 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) (Primary Dx); Choroidal nevus, right eye; Combined forms of age-related cataract of both eyes 03/12/2025 Refill [facility] [address] [place] [phone] Loly Sheridan MD Fibromyalgia 03/12/2025 Travel 03/03/[address] [address] Loly Sheridan MD TIMBER SKIDDER referral 02/28/2025 Orders Only [address] [address] Loly Sheridan MD Moderate cognitive impairment (Primary Dx) 02/27/2025 11:00 AM EST Clinical Support [address] [address] Kassie Butterfield RN Memory deficits 02/27/2025 Travel 02/20/2025 9:00 AM EST Office Visit [address] [address] Loly Sheridan MD Irritable bowel syndrome with both constipation and diarrhea (Primary Dx); Memory deficits; Fibromyalgia; Mixed hyperlipidemia; Gastroesophageal reflux disease, unspecified whether esophagitis present; Nausea 02/20/2025 Travel 02/13/2025 Patient Outreach [facility] [address] [place], [place] [phone] Loly Sheridan MD Pre-visit Planning (SDOH was already completed. 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); Itchy eyes; Combined forms of age-related cataract of both eyes; Presbyopia 01/21/2025 Travel from Last 3 Months Immunizations Immunization Administration [...] Info) Description 04/08/2025 10:00 AM EST Telemedicine [facility] [address] [place] [address] Loly Sheridan MD [address] [place] [address] 09/12/2025 10:30 AM EDT Office Visit [facility] [address] [place] [address] Ketty Moraes, OD [address] [place] [address] Health Maintenance Due Date Last Done Comments CT Colonography 1960 FIT DNA/Cologuard 1960 FIT 1960 FOBT 1960 Sigmoidoscopy 1960 Zoster Vaccines (1 of 2) 2008 Dental X-Ray: Bitewings 04/25/2019 04/24/2018, 02/18 Dental Prophylaxis 08/21/2024 02/21/2024, 0 09/22/2017, 12/14/2016, Additional history exists Mammogram 09/14/2024 09/15/2023, 05/2022, 09/09/2022, Additional history exists Dental Oral Exam 09/18/2024 09/18/2023, , 12/14/2016, Additional history exists COVID-19 Vaccine ( season) 2024 02/01/2024, 09/09/2021, 05/13/2021, Additional history exists Influenza Vaccine (#1) 2024 , 12/19/2022, 05/16/2019, Additional history exists DTaP/Tdap/Td Vaccines (2 - Td or Tdap) 01/21/2025 01/21/2015 Colonoscopy 04/21/2025 04/21/2015 Colorectal Cancer Screening 04/21/2025 Alcohol/Substance Use Screening 08/09/2025 08/09/2024 Depression Screening 08/09/2025 08/09/2024, 08/10/19 25 SDOH Screening 08/09/2025 08/09/2024 Tobacco Screening 03/28/2026 03/28/2025 Dental X-Ray: Full Mouth 09/18/2026 024, 04/24/2018, 02/19/2016 RSV Patients and Patients Aged 60 years or older (1 - 1-dose 75+ series) 2033 Cervical Cancer Screening Discontinued HPV/Cotest Discontinued 11/17/2022, 02/13/2017 Pap Smear Discontinued 11/17/2022 Pneumococcal Vaccine: 50+ Years Completed 02/01/2024 Hepatitis C Screening Completed 02/21/2025, 024 HIB Vaccines Aged Out No longer eligi [...] Procedure Name Priority Date/Time Associated Diagnosis Comments OCT, RETINA - OU - BOTH EYES Routine 03/12/2025 12:20 PM EST 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) FUNDUS PHOTOS - OU - BOTH EYES Routine 03/12/2025 11:00 AM EST 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) VITAMIN B12/FOLATE, SERUM PANEL Routine 02/21/2025 10:12 AM EST Memory deficits RPR (MONITOR) W/REFL TITER Routine 02/21/2025 10:12 AM EST Memory deficits TSH W/REFLEX TO FT4 Routine 02/21/2025 1 0:12 AM EST Fibromyalgia VITAMIN D,25-OH,TOTAL,IA Routine 02/21/2025 10:12 AM EST Fibromyalgia LIPID PANEL, STANDARD Routine 02/21/2025 10:12 AM EST Fibromyalgia HEPATITIS C AB W/REFL TO HCV RNA, QN, PCR Routine 02/21/2025 10:12 AM EST Fibromyalgia HIV 1/2 ANTIGEN/ANTIBODY, FOURTH GENERATION W/RFL Routine 02/21/2025 10:12 AM EST Fibromyalgia HEMOGLOBIN A1C Routine 02/21/2025 10:12 AM EST Fibromyalgia COMPREHENSIVE METABOLIC PANEL Routine 02/21/2025 10:12 AM EST Fibromyalgia CBC WITH AUTO DIFFERENTIAL Routine 02/21/2025 10:12 AM EST Fibromyalgia AMB REFERRAL TO OPHTHALMOLOGY Routine 01/30/2025 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) FUNDUS PHOTOS - OU - BOTH EYES Routine 01/21/2025 1:25 PM EDT 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) PROPHYLAXIS - ADULT Routine 02/21/2024 8 :00 AM EST Dental calculus Periodontal disease PANORAMIC RADIOGRAPHIC IMAGE Routine 09/18/2023 1:30 PM EDT PERIODIC ORAL EVALUATION - ESTABLISHED PATIENT Routine 09/18/2023 1:30 PM EDT BI MAMMOGRAM SCREENING TOMOSYNTHESIS BILATERAL Routine 09/15/2023 11:07 AM EDT HPV MRNA E6/E7 REFLEX TO HPV 16, 18/45 Routine 11/17/2022 12:00 AM EDT PAP SMEAR Routine 11/17/2022 12:00 AM EDT INTRAORAL - COMPLETE SERIES OF RADIOGRAPHIC IMAGES Routine 04/24/2018 12:00 AM EST HM COLONOSCOPY Routine 04/21/2015 from Last 3 Months or Most Recently Relevant to Health Maintenance Results * OCT, Retina - OU - Both Eyes (03/12/2025 12:20 PM EST) Narrative Ketty Moraes, OD - 03/12/2025 12:20 PM EST Erroneous order Ketty Moraes OD OPHTH TOMOGRAPHY Final Result * Fundus Photos - OU - Both Eyes (03/12/2025 11:00 AM EST) Narrative Ketty Moraes, OD - 03/28/2025 4:10 PM EST Images from the original result were not included. Right Eye Progression has been stable. Disc findings include normal observations. Macula findings include normal observations. Vessel findings include normal observations. Periphery findings include (1DD flat ovoid choroidal nevus without drusen or lipofuscin at 9:00 in the mid periphery). Left Eye Progression has no prior data. Disc findings include normal observations. Macula findings include normal observations. Vessel findings include (Collateral vessels just superior to ONH, branch retinal vein occlusion (BRVO) superotemporal mid periphery with exudates, collateral vessels along superotemporal secondary arcades in midperiphery). Periphery findings include (Few blot hemes in superotemporal periphery). Notes Assessment and Plan: Stable flat choroidal nevus in the right eye. Likely old branch retinal vein occlusion of large superotemporal venous branch that has remaining collaterals in various locations. There is a twig/tertiary branch retinal vein occlusion (BRVO)/CASSIE that is still active in the superotemporal periphery. Patient will follow up with [facility] in 3 months, and return here in 6 months for monitoring as well. Ketty Moraes OD OPHTH PHOTOGRAPHY Final Resul t * (ABNORMAL) Vitamin D, 25-Hydroxy, Total, Immunoassay (02/21/2025 10:12 AM EST) Vitamin D 25-OH Total 28.5(L) >30 ng/mL [facility] Comment: Health Based Reference Values*< 20 ng/mL [id number] ng/mL Insufficient> 30 ng/mL Sufficient*[place] LLOYD. N Engl J Med. 2007;357:266-280There is no well-established upper level of normal vitamin Dlevels. Some laboratories use 50 ng/mL as an upper limit ofnormal. However, toxicity is patient-dependent and may occurat any level. Careful correlation with the patient'spresentation is necessary and, if there is concern forvitamin D toxicity, treatment should be consideredirrespective of the serum level.Care must be taken in interpreting Vitamin D results fromdifferent laboratories and methodologies. Published datademonstrated that results from patients undergoinghemodialysis may show a negative bias when tested withvarious automated 25-OH vitamin D assays when compared toLC-MS/MS.When testing samples from patients whose predominant form ofVitamin D is Vitamin D2, such as patients receiving VitaminD2 supplementation, results that are subtherapeutic shouldbe confirmed with another method such as LC-MS/MS. Blood Venous blood specimen / Unknown 02/21/2025 10:12 AM EST 02/21/2025 10:12 AM EST us Loly Guzman MD LAB BLOOD ORDERABLES Final Result [facility] [address] [place] [address] [phone] * Vitamin B12 (Cobalamin) and Folate Panel, Serum (02/21/2025 10:12 AM EST) Vitamin B12 245 200 - 900 pg/mL [facility] Comment:NORMAL 200-900 PG/ML INDETERMINATE 160-199 PG/ML DEFICIENT < 160 PG/ML Folate 14.3 > or = 4.0 ng/mL [facility] Comment:Reference Values:> o r = 4.0 ng/mL< 4.0 ng/mL suggests folate deficiency Methotrexate, aminopterin and folinic acid(leucovorin) are chemotherapeutic agents whose molecularstructures are similar to folate; therefore, the Architectfolate assay cannot be used for patients using these drugs. Blood Venous blood specimen / Unknown 02/21/2025 10:12 AM EST 02/21/2025 10:12 AM EST us Loly Guzman MD LAB BLOOD ORDERABLES Final Result Performing Organization Address City/[facility]/ZIP Co de Phone Number [facility] [address] [place] [phone] * TSH with Reflex to Free T4 (02/21/2025 10:12 AM EST) Pathologist [facility] TSH reflex Free T4 2.16 0.32 - 4.0 uIU/mL [facility] Blood Venous blood specimen / Unknown 02/21/2025 10:12 AM EST 02/21/2025 10:12 AM EST us Loly Guzman MD LAB BLOOD ORDERABLES Final Result [facility] [address] [place] [phone] * (ABNORMAL) CBC auto differential (02/21/2025 10:12 AM EST) Pathologist [facility] White Blood Count 7.5 4.8 - 10.8 X10*3/uL [facility] Red Blood Count 4.36 4.20 - 5.50 X10*6/uL [facility] Hemoglobin 13.2 12.0 - 16.0 g/dl [facility] Hematocrit 39.9 37.0 - 47.0 % [facility] Mean Corpuscular Volume 91.5 80.0 - 98.0 fL [facility] Mean Corpuscular Hemoglobin 30.3 27.0 - 33.0 pg [facility] Mean Corpuscular HGB Conc 33.1 31.0 - 35.0 g/dl [facility] Red Cell Distribution Width 13.2 11.0 - 16.0 % [facility] Platelet Count 331 160 - 400 X10*3/uL [facility] Mean Platelet Volume 9.3(L) 9.4 - 12.3 fL [facility] Neutrophils Percent Auto 59.8 45 - 73 % [facility] Imm Gran Pct Auto 0.4 0.0 - 0.4 % [facility] Lymphocytes Percent Auto 30.3 20 - 40 % [facility] Monocytes Percent Auto 6.1 2 - 11 % [facility] Eosinophils Percent Auto 2.5 0 - 4 % [facility] Basophils Percent Auto 0.9 0 - 2 % [facility] NRBC Pct Auto 0.0 0.0 - 0.2 /100WBC [facility] Neutrophils Absolute Auto 4.5 2.0 - 8.3 x10*3/uL [facility] Imm Gran Abs Auto 0.03 0.00 - 0.03 X10*3/uL [facility] Lymphocytes Absolute Auto 2.3 1.2 - 4.9 X10*3/uL [facility] Monocytes Absolute Auto 0.5 0.1 - 1.2 X10*3/uL [facility] Eosinophils Absolute Auto 0.2 0.0 - 0.4 X10*3/uL [facility] Basophils Absolute Auto 0.1 0.0 - 0.2 X10*3/uL [facility] NRBC Abs Auto 0.000 0.0 - 0.012 X10*3/uL [facility] Blood Venous blood specimen / Unknown 02/21/2025 10:12 AM EST 02/21/2025 10:12 AM EST Loly Guzman MD LAB BLOOD ORDERABLES Final Result Performing Organization Address City/[facility]/ZIP Co de Phone Number [facility] [address] [place] [address] [phone] * Hepatitis C Antibody with Reflex to HCV, RNA, Quantitative, Real-Time PCR (02/21/2025 10:12 AM EST) Hepatitis C Antibody Nonreactive Nonreactive [facility] Comment:Antibodies to HCV no t detected; does not exclude early acuteHCV infection. Blood Venous blood specimen / Unknown 02/21/2025 10:12 AM EST 02/21/2025 10:12 AM EST Loly Guzman MD LAB BLOOD ORDERABLES Final Result Performing Organization Address [facility] Co de Phone Number [facility] [address] [place] [address] [phone] * RPR (Monitor) with Reflex to??Titer (02/21/2025 10:12 AM EST) RPR (Monitor) w/Refl Titer NON-REACTI VE NON-REACT MARS [facility] Comment:THIS TEST WAS PERFOR MED AT:[facility] [address] [phone] DHALIWAL MD Rapid Plasma Reagin Ab Titer TNP [facility] Blood Venous blood specimen / Unknown 02/21/2025 10:12 AM EST 02/21/2025 10:12 AM EST Loly Guzman MD LAB BLOOD ORDERABLES Final Result Performing Organization Address [facility]/ZIP Co de Phone Number [facility] [address] [place] [address] [phone] * HIV-1/2 Antigen and Antibodies, Fourth Generation, with Reflexes (02/21/2025 10:12 AM EST) HIV AB/AG Nonreactive Nonreactive [facility] Comment:HIV-1 p24 Ag and/or HIV-1/HIV-2 Ab not detected.A test result that is nonreactive does not exclude thepossibility of exposure to or infection with HIV-1 and/orHIV-2. Nonreactive results in this assay for individualswith prior exposure to HIV-1 and/or HIV-2 may be due toantigen and antibody levels that are below the limit ofdetection of this assay.The [employer] HIV Ag/Ab Combo assay result andsupplemental assay results should be interpreted inconjunction with the patient's clinical presentation,history and other laboratory results. If the results areinconsistent with clinical evidence, additional testing issuggested to confirm the result. Blood Venous blood specimen / Unknown 02/21/2025 10:12 AM EST 02/21/2025 10:12 AM EST us Loly Guzman MD LAB BLOOD ORDERABLES Final Result [facility] [address] [place] [phone] * Hemoglobin A1c (02/21/2025 10:12 AM EST) Hemoglobin A1c 5.0 <6.0 % [facility] Comment:Hemoglobin A1C Refer ence Range Adults: 4.8 - 6.0 % Non diabetic: < 6.0 % Goal: < 7.0 %Additional Action Suggested: > 8.0 %Note: Hemoglobin A1c results are invalid for patients with abnormal amounts of HbF. Blood transfusions may impact the HbA1c concentration in the patient sample. Estimated Average Glucose 97 mg/dL [facility] Comment:eAG = Estimated ave rage glucose which is %A1C expressed asaverage glucose, using the formula of the X3V-TdorjgjCetkncm Glucose study (ADAG), Diabetes Care, Vol.31,#8,2007 Blood Venous blood specimen / Unknown 02/21/2025 10:12 AM EST 02/21/2025 10:12 AM EST us Loly Guzman MD LAB BLOOD ORDERABLES Final Result Performing Organization Address [facility] Co de Phone Number [facility] [address] [place] [address] [phone] * (ABNORMAL) Lipid Panel, Standard (02/21/2025 10:12 AM EST) Triglycerides 220(H) <150 mg/dL [facility] Comment:Desirable Triglyceri de: less than 150 mg/dLBorderline High Triglyceride 150-199 mg/dLHigh Triglyceride: 200-499 mg/dLVery High Triglyceride: greater than or equal to 5OO mg/dL Cholesterol 237(H) <200 mg/dL [facility] Comment:Desirable Cholestero l: less than 200 mg/dLBorderline High Cholesterol: 200-239 mg/dLHigh Cholesterol: greater than 239 mg/dL LDL Cholesterol Calculated 137(H) <100 mg/dL [facility] Comment:Desirable LDL: less than 100 mg/dLNear Optimal/Above Optimal LDL: 110- 129 mg/dLBorderline High LDL: 130-159 mg/dLHigh LDL: 160-189 mg/dLVery High LDL: greater than or equal to 190 mg/dL HDL Cholesterol 56 >40 mg/dL [facility] Comment:Desirable HDL: great er than 40 mg/dL Note: This HDL assay may give artificially low results in patients with liver disease. Blood Venous blood specimen / Unknown 02/21/2025 10:12 AM EST 02/21/2025 10:12 AM EST us Loly Guzman MD LAB BLOOD ORDERABLES Final Result Performing Organization Address City/[facility]/ZIP Co de Phone Number [facility] [address] [place] [address] [phone] * (ABNORMAL) Comprehensive Metabolic Panel (02/21/2025 10:12 AM EST) Sodium 143 135 - 145 mmol/L [facility] Potassium 3.8 3.3 - 5.1 mmol/L [facility] Chloride 109(H) 96 - 108 mmol/L [facility] Carbon Dioxide 26 22 - 29 mmol/L [facility] Anion Gap 12 12 - 20 [facility] Urea Nitrogen (BUN) 9 9 - 16 mg/dL [facility] Creatinine, Serum 0.69 0.5 - 1.4 mg/dL [facility] Estimated Glomerular Filt Rate >60 [facility] Comment:Chronic Kidney Disea se: Estimated GFR < 60 mL/min/1.87q0Qkncdh Kidney Disease: Estimated GFR < 15 mL/min/1.73m2 Glucose 91 60 - 115 mg/dL [facility] Calcium 9.8 8.4 - 10.2 mg/dL [facility] Bilirubin, Total 2.6(H) 0.0 - 1.0 mg/dL [facility] Comment:Slight Icterus. Aspartate Amino Transferase 23 5 - 31 U/L [facility] Alanine Aminotransferase 21 0 - 31 U/L [facility] Total Protein 7.6 6.5 - 8.0 g/dL [facility] Albumin Level 4.5 3.5 - 5.0 g/dL [facility] Alkaline Phosphatase 95 39 - 117 U/L [facility] Blood Venous blood specimen / Unknown 02/21/2025 10:12 AM EST 02/21/2025 10:12 AM EST us Loly Guzman MD LAB BLOOD ORDERABLES Final Result [facility] [address] [place] [address] [phone] * Referral to Ophthalmology (01/30/2025) us [...] refer to a retinal specialist for evaluation. us Ketty Moraes OD OPHTH PHOTOGRAPHY Final Resul t * BI Mammogram Screening Tomosynthesis Bilateral (09/15/2023 11:07 AM EDT) Anatomical Region Laterality Modality Breast Bilateral Mammography 09/15/2023 11:0 7 AM EDT Narrative 10/10/2023 8:53 AM EDT [facility] [address] [place] [address] Mammography Report Signed Patient: Loly Magaña V MR#: [id number] : 1960 Acct:[id number] Age/Sex: 62 / F ADM Date: 09/15/23 Loc: HO.MAMMO Attending Dr: Loly Guzman MD Ordering Physician: Loly Sheridan MD Results: 2Benign Findings Date of Service: 09/15/23 Follow Up: 1 Year From Orig inal Mammogram Procedure(s): MM tomosynthesis screening BI Accession Number(s): [id number] cc: Loly Sheridan MD EXAMINATION: MM SCREENING [...] in OV> 10/10/23 0850 DD/ 1107 TD/TT: Aligner Barrel And Receiver: Procedure Note Donotuseinterpreter, Image - 10/10/2023 [facility] [address] [place], [place] [address] Mammography Report Signed Patient: Loly Magaña VMR#: [id number] : 9Acct:[id number] Age/Sex: 62 / FADM Date: 09/15/23 Loc: NANIO Attending Dr: Loly Guzman MD Ordering Physician: Loly Sheridan MDResults: 2Benign Findings Date of Service: 09/15/23Follow Up: 1 Year From Orig ina Mammogram Procedure(s): MM tomosynthesis screening BI Accession Number(s): [id number] cc: Loly Sheridan MD EXAMINATION: MM SCREENING [...] in OV> 10/10/23 0850 DD/ 1107 TD/TT: Aligner Barrel And Receiver: Loly Guzman MD IMG BI PROCEDURES Abraham antonio Result - Final * HPV mRNA E6/E7 w/Reflex to HPV Genotypes 16, 18/45 (11/17/2022 12:00 AM EDT) HPV nRNA E6/E7 Not Detected Not Detected [facility] Comment:Methodology: Transcr iption-Mediated AmplificationThis assay detects E6/E7 viral messenger RNA (mRNA) from 14high-risk HPV types (16,18,31,33,35,39,45,51,52,56,58,59,66,68).Cervical sources are required for HPV testing.If a vaginal source from a patient who has had atotal hysterectomy with removal of cervix wassubmitted, please contact the testing laboratoryfor alternative testing options.For additional information, please refer [email or web address]/OVN483b9(This link if provided for information/educational purposes only.)THIS TEST WAS PERFORMED AT:[facility] [place] [phone] DHALIWAL MD HPV mRNA E6/E7 TNP [facility] HPV 16 RNA [facility] HPV 18/45 RNA [facility] 11/17/2022 11/18/2022 9:3 0 AM EDT us Loyl Guzman MD LAB CYTOLOGY ORDERABL ES Final Result [facility] [address] [place] [phone] * Pap Smear (11/17/2022 12:00 AM EDT) 11/17/2022 11/18/2022 9:3 0 AM EDT Narrative [facility] - 12/06/2022 10:21 AM EDT ----- ------- Name: Loly Magaña V Age/Sex: 62/F : 1960 Unit#: [id number] Attend Dr: Loly Sheridan MD Re11/17/22 Status: DEP REF Location: HO.HHCLNP Disch: ----- ------- SPEC : [id number] RECD: 11/18/22 STATUS: IVANIA JAVIER NUM: [id number] ZEFERINO: 11/17/22-[address]: Loly Sheridan MD ENTERED: 11/18/221135 SP TYPE: Pap Smr OTHR DR: ORDERED: Pap Smear Interpretation Satisfactory for evaluation. Negative for intraepithelial lesion or malignancy. HPV mRNA E6/E7: NOT DETECTED This assay detects E6/E7 viral messenger RNA (mRNA) from 14 high-risk HPV types (16, 18, 31, 33, 35, 39, 45, 51, 52, 56, 58, 59, 66, 68) HPV testing performed by [facility], [place], [place]. See reference laboratory pion of the EMR for entire report. Clinical Information LMP:Unknown date Previous PAP test:Unknown date/findings Material Received ThinPrep-Vaginal/Cervical ----- ------- Signed (signature on file) JANESSA Garcia (ASCP) 12/06/22 1021 ----- ------- END OF REPORT Loly Guzman MD LAB CYTOLOGY ORDERABL ES Final Result [facility] [facility] [address] [place] [phone] * Hm Colonoscopy (04/21/2015) Historical Provider HEALTH MAINTENANCE Final Result from Last 3 Months or Most Recently [place] [id number] [facility] OPTIONS (HMO D-SNP) [facility] Care Teams Skull Splitter Relationship Specialty Start Date End Date Loly Sheridan MD [address] [place] [id number] PCP - General Family Medicine 12/20/17
--- OUTSIDE RECORDS SUMMARY | 2025-04-07 12:52 | XMS_ITS | Encounter Summary ---
Author Organization [employer] Address [address] [facility] [address] [place] [address] Care Team Providers Care Family Partner Name Role Phone Loly Sheridan MD Primary Care Provide r Encounter Details Date Type Department Care Team (Latest Contact Info) Description 04/07/2025 Travel Social History Tobacco Use Types Packs/Day [...] the past 12 months, has t he [employer] or [employer] threatened to shut off services in your [...] Info) Description 04/08/2025 10:00 AM EST Telemedicine [facility] [address] [place] [address] Loly Sheridan MD [address] [place] [address] 09/12/2025 10:30 AM EDT Office Visit [facility] [address] [place] [address] Dimitry, Ketty, OD [address] [place] [address] documented as of this encounter Visit Diagnoses Not on filedocumented in this encounter Additional Health Concerns Assessment Noted Time PHQ-9 Depression Total Score: 0 08/10/19 25 9:14 AM EDT documented as of this encounter Care Teams Family Partner Relationship Specialty Start Date End Date Loly Sheridan MD [address] [place] [id number] PCP - General Family Medicine 12/20/17 documented as of this encounter
--- OUTSIDE RECORDS SUMMARY | 2025-04-07 12:52 | XMS_ITS | Encounter Summary ---
Author Organization [employer] Address [address] [facility] [address] [place] [address] Care Team Providers Care Regional Maintenance Manager Name Role Phone Loly Sheridan MD Primary Care Provide r Encounter Details Date Type Department Care Team (Late st Contact Info) Description 01/17/2023 Abstract [facility] [address] [place] [address] Anjana Marks Social History Tobacco Use Types [...] Info) Description 04/08/2025 10:00 AM EST Telemedicine [facility] [address] [place] [address] Loly Sheridan MD [address] [place] [address] 09/12/2025 10:30 AM EDT Office Visit [facility] [address] [place] [address] Dimitry, Ketty, OD [address] [place] [address] documented as of this encounter Visit Diagnoses Not on filedocumented in this encounter Additional Health Concerns Assessment Noted Time PHQ-9 Depression Total Score: 0 08/02/19 23 2:59 PM EDT documented as of this encounter Care Teams Regional Maintenance Manager Relationship Specialty Start Date End Date Loly Sheridan MD [address] [place] [address] PCP - General Family Medicine 12/20/17 documented as of this encounter
== END 2025-04-07 11:25 | disposition home or self-care (01) ==
LOC: HO.HCS 11:02
PROVIDERS: PCP Internal Medicine; Visit Provider Internal Medicine Cardiovascular Disease
DX: R07.89 Other chest pain (principal); I44.4 Left anterior fascicular block
CPT/HCPCS: 93010; 99213

== ENCOUNTER → 2025-04-07 11:01 | Outpatient (BNVA) | payer OTHER, SELFPAY | PROVIDERS: PCP Internal Medicine; Visit Provider Internal Medicine Cardiovascular Disease | DX: R07.89 Other chest pain (principal); I44.4 Left anterior fascicular block | CPT/HCPCS: 93005; 99212 ==